=== PATIENT | male | born 1965 | race African-American/Black ===

== ENCOUNTER 2016-08-02 12:55 | Emergency (ER) | payer MEDICAID, OTHER ==
[~2016-08-02] VITALS: Ht 165.1 cm; Wt 65.8 kg
[~2016-08-02 12:55] MED LIST: DICYCLOMINE HCL10 MG PO; FLONASE1 SPRAYS NASAL; IBUPROFEN800 MG ORAL
[2016-08-02 14:07] VITALS: BP 158/89
[2016-08-02] MEDS ORDERED: LOVAZA1 GM ORAL (14:12)
[2016-08-02 14:19] VITALS: BP 158/89
--- NOTE | 2016-08-02 15:27 | Emergency Room Report ---
History of Present Illness General Chief Complaint: Pain Source: Patient Present Illness HPI Patient is a 51-year-old male who presented after having increased generalized body aches for the past 2 days. Patient prior history of chronic pain. The patient stated that he had been having increased joint pain to multiple joints patient had previously been taking multiple different types of pain medications which included tramadol Naprosyn gabapentin among others. Patient had denied any fever. He had not been vomiting or having diarrhea. He denied any focal weakness. Allergies: Coded Allergies: No Known Allergies (Unverified , 08/11/14) Patient History Reviewed Nursing Documentation: PMH: Agreed, PSxH: Agreed Nursing Documentation-PMH Past Medical History: No History, Except For Hx Hypertension: Yes Hx Asthma: Yes Hx Diabetes: Yes Review of Systems All Other Systems: negative except mentioned in HPI Physical Exam Vital Signs Date Time Temp Pulse Resp B/P Pulse Ox O2 Delivery O2 Flow Rate FiO2 08/02/16 13:01 98.2 108 16 83/53 98 Room Air General Appearance: well appearing, no apparent distress, alert, GCS 15 Head: normocephalic, atraumatic ENT: hearing grossly normal, normal voice Neck: full range of motion, supple Respiratory: no respiratory distress, speaking full sentences Musculoskeletal: no calf tenderness Neurologic: normal gait Psychiatric: mood/affect normal Skin: no rash Medical Decision Making Diagnostic Impression: Primary Impression: Generalized pain Additional Impression: Arthritis ER Course Patient presented for generalized joint pain. Differential diagnosis included was not limited to arthritis, gout, viral illness among others. Patient's benign exam and does not appear to require any further imaging or laboratory testing at this time. This patient exacerbation of patient's chronic pain. Patient was given a prescription for a Lovaza he was advised followup with his primary care physician for adjustments of his other pain medications. Last Vital Signs Date Time Temp Pulse Resp B/P Pulse Ox O2 Delivery O2 Flow Rate FiO2 08/02/16 14:19 98.2 87 20 158/89 98 Room Air Status: improved Disposition: HOME, SELF-CARE Condition: Stable Scripts Bethel-3 Acid Ethyl Esters (LOVAZA) 1 Gm Capsule 1 GM ORAL DAILY, #30 CAP 0 Refills Prov: Jd Dominguez 08/02/16 Patient Instructions: Chronic Pain Jd Dominguez Aug 02, 2016 15:27
== END 2016-08-02 14:19 | disposition home or self-care (01) ==
LOC: EMR 13:15
DX: M19.90 Unspecified osteoarthritis, unspecified site (principal); E11.9 Type 2 diabetes mellitus without complications; J45.909 Unspecified asthma, uncomplicated; I10 Essential (primary) hypertension
CPT/HCPCS: 99282

== ENCOUNTER 2016-11-05 16:16 | Emergency (ER) | payer OTHER ==
[~2016-11-05] VITALS: Ht 165.1 cm; Wt 57.6 kg
[~2016-11-05 16:16] MED LIST changes: +LOVAZA1 GM ORAL
[2016-11-05] MEDS ORDERED: TRAMADOL HCL50 MG ORAL (16:33)
[2016-11-05] MEDS ORDERED: METHOCARBAMOL500 MG ORAL (16:33)
[2016-11-05] MEDS ORDERED: VENTOLIN HFA18 GM INH (16:33)
[2016-11-05] MEDS ORDERED: PREDNISONE20 MG ORAL ×2 (16:33→17:55)
[2016-11-05] MEDS ORDERED: PAMELOR25 MG ORAL (16:33)
[2016-11-05] MEDS ORDERED: METFORMIN HCL1000 M1 ORAL (16:33)
[2016-11-05] MEDS ORDERED: GABAPENTIN300 MG ORAL (16:33)
[2016-11-05 16:41] VITALS: BP 147/95
[2016-11-05] MEDS ORDERED: Albuterol ud Inhalation HHN ONE ×2 (16:45→17:15)
[2016-11-05] MEDS ORDERED: Ipratropium 0.02% Inh Soln 2.5ml UD HHN ONE ×2 (16:45→17:15)
[2016-11-05] MEDS ORDERED: PredniSONE 20mg tab ORAL ONE (16:45)
[2016-11-05 17:31] VITALS: BP 137/99
[2016-11-05] MEDS ORDERED: PROAIR HFA8.5 GM INH (17:55)
[2016-11-05 18:06] VITALS: BP 161/97
--- NOTE | 2016-11-05 20:54 | Emergency Room Report ---
History of Present Illness General Chief Complaint: Asthma Present Illness HPI The patient is a 51-year-old male With a history of hypertension, diabetes, and asthma presenting for shortness of breath. The patient was being seen by his neurologist today and was told to come to the emergency department. The patient has used albuterol at home this morning which did not help. The patient denies any other symptoms including chest pain, nausea, vomiting, fever , chills, headache, dizziness, abd pain Allergies: Coded Allergies: No Known Allergies (Unverified , 08/11/14) Patient History Past Medical History: see triage record Pertinent Family History: none Reviewed Nursing Documentation: PMH: Agreed, PSxH: Agreed Nursing Documentation-PMH Hx Hypertension: Yes Hx Asthma: Yes Hx Diabetes: Yes Review of Systems All Other Systems: negative except mentioned in HPI Physical Exam Vital Signs Date Time Temp Pulse Resp B/P Pulse Ox O2 Delivery O2 Flow Rate FiO2 11/05/16 16:24 97.9 114 22 120/85 98 Room Air 11/05/16 16:44 40 Sp02 EP Interpretation: reviewed, normal General Appearance: no apparent distress, alert, GCS 15, non-toxic Head: normocephalic, atraumatic Eyes: bilateral eye PERRL, bilateral eye normal inspection ENT: hearing grossly normal, normal pharynx, no angioedema, normal voice Neck: full range of motion, supple/symm/no masses Respiratory: no retraction, no accessory muscle use, wheezing - diffuse Cardiovascular #1: no JVD, no murmur, normal capillary refill, tachycardia Musculoskeletal: back normal, gait/station normal, normal range of motion, non- tender Neurologic: alert, oriented x3, responsive, motor strength/tone normal, sensory intact, speech normal Psychiatric: judgement/insight normal, memory normal, mood/affect normal, no suicidal/homicidal ideation Skin: normal color, no rash, warm/dry, well hydrated Lymphatic: no adenopathy Medical Decision Making PA Attestation Dr. Patricia is my supervising physician. Patient management was discussed with my supervising physician Diagnostic Impression: Primary Impression: Asthma ER Course The patient is a 51-year-old male With a history of hypertension, diabetes, and asthma presenting for shortness of breath Differential diagnoses considered but not limited to: Asthma exacerbation, bronchitis, pneumonia, anxiety PE: Tachycardia and tachypnea. NAD. Afebrile. HEENT unremarkable. Cardiac: Tachycardia. No MRG Lungs: diffuse wheezing. The patient is given 2 breathing treatments with albuterol and ipratropium. The patient is feeling better. Wheezing has decreased and lung sounds have increased. The patient is given 60 mg of prednisone in the emergency department. The patient will be discharged home with a prescription for albuterol, prednisone, and will followup with PMD. ER precautions are given Chest X-Ray Diagnostic Results EP Interpretation: Yes Findings: no consolidation, no effusion, no pneumothorax, no acute cardiopulmonary disease Number of Views: 1 PA Scribe Text I am acting as scribe for my supervising physician. My supervising physician's interpretation of the chest xrays are there is no consolidation, no effusion, no acute cardiopulmonary disease, no pneumothorax Last Vital Signs Date Time Temp Pulse Resp B/P Pulse Ox O2 Delivery O2 Flow Rate FiO2 11/05/16 18:06 117 19 161/97 100 Room Air 11/05/16 17:27 40 11/05/16 16:24 97.9 Status: improved Disposition: HOME, SELF-CARE Condition: Improved Scripts Prednisone* (PREDNISONE*) 20 Mg Tablet 40 MG ORAL DAILY for 4 Days, TAB Prov: ADAN CHAVARRIA 11/05/16 Albuterol Sulfate* (PROAIR HFA*) 8.5 Gm Hfa.aer.ad 2 PUFFS INH Q6H, #8.5 GM 0 Refills Prov: ADAN CHAVARRIA 11/05/16 Referrals: [facility] (PCP) Patient Instructions: Asthma, Adult Additional Instructions: I discussed my findings with the patient. All questions and concerns have been answered. Treatment and medication compliance have been addressed. I advised the patient that they need to follow up with primary doctor as soon as possible. Return to ED if symptoms worsen, new symptoms arise, or if needed for any reason. Patient verbalized understanding of discharge instructions. ADAN CHAVARRIA Nov 05, 2016 20:54
--- NOTE | 2016-11-06 10:28 | Diagnostic Imaging Report ---
Indication: Cough Technique: XRAY CHEST 1 V Comparison: None Findings: The cardiomediastinal silhouette is within normal limits. There is no focal consolidation, pneumothorax or pleural effusion. Osseous structures demonstrate no acute abnormality. Impression: No acute cardiopulmonary disease.
== END 2016-11-05 18:09 | disposition home or self-care (01) ==
LOC: EMR 16:36
DX: J45.909 Unspecified asthma, uncomplicated (principal); E11.9 Type 2 diabetes mellitus without complications
CPT/HCPCS: 71010; 82962; 94640; 94664; 99284

== ENCOUNTER 2017-01-04 17:25 | Emergency (ER) | payer OTHER ==
[~2017-01-04] VITALS: Ht 162.6 cm; Wt 56.7 kg
[~2017-01-04 17:25] MED LIST changes: +GABAPENTIN300 MG ORAL; +METFORMIN HCL1000 M1 ORAL; +METHOCARBAMOL500 MG ORAL; +PAMELOR25 MG ORAL; +PREDNISONE20 MG ORAL; +PROAIR HFA8.5 GM INH; +TRAMADOL HCL50 MG ORAL; +VENTOLIN HFA18 GM INH
[2017-01-04 17:40] VITALS: BP 149/98
[2017-01-04 18:09] LABS: LYMPHOCYTES % (AUTO) 35.1 % (20.0-45.0); MEAN CORPUSCULAR HEMOGLOBIN 32.7 PG (27.0-31.0); MEAN CORPUSCULAR HGB CONC 35.2 G/DL (32.0-36.0); MEAN CORPUSCULAR VOLUME 93 FL (80-99); MEAN PLATELET VOLUME 6.3 FL (6.5-10.1); MONOCYTES % (AUTO) 1.5 % (1.0-10.0); NEUTROPHILS % (AUTO) 59.5 % (45.0-75.0); PLATELET COUNT 233 K/UL (150-450); RED BLOOD COUNT 5.06 M/UL (4.70-6.10); RED CELL DISTRIBUTION WIDTH 12.7 % (11.6-14.8); WHITE BLOOD COUNT 8.9 K/UL (4.8-10.8)
[2017-01-04 18:27] LABS: TROPONIN I < 0.30 ng/mL (<=0.30)
[2017-01-04 18:30] LABS: ALANINE AMINOTRANSFERASE 18 U/L (3-41); ALBUMIN/GLOBULIN RATIO 1.2 (1.0-2.7); ANION GAP 17 (5-15); ASPARTATE AMINO TRANSFERASE 16 U/L (5-40); CALCIUM 10.1 mg/dL (8.6-10.2); CARBON DIOXIDE 25 mEQ/L (20-30); CHLORIDE 93 mEQ/L (98-107); CREATININE 0.8 mg/dL (0.7-1.2); GLOMERULAR FILTRATION RATE > 60 mL/min (>60); HEMOLYSIS 24; POTASSIUM 4.1 mEQ/L (3.4-4.9); SODIUM 135 mEQ/L (135-145); TOTAL PROTEIN 7.7 g/dL (6.6-8.7)
[2017-01-04 18:41] LABS: CKMB 1.5 ng/mL (< 6.7)
[2017-01-04] MEDS ORDERED: Nitroglycerin Subl 0.4mg tab (Bottle Of 25) SL PRN (18:45)
[2017-01-04 19:29] VITALS: BP 136/88
[2017-01-04] MEDS ORDERED: Morphine Sulfate 4mg/ml Inj IVP ONE (20:00)
[2017-01-04 20:46] VITALS: BP 114/84
--- NOTE | 2017-01-04 21:39 | Emergency Room Report ---
History of Present Illness General Chief Complaint: Pain Source: Patient Present Illness HPI 51-year-old male presents ED complaining of chest pain and body pain times one day. Patient states he has a history of neuropathy but states his pain medications are not helping. Pain is a 10 out of 10, sharp, nonradiating. patient also notes chest pain. Unclear whether it is related or separate. Denies shortness of breath. No other aggravating or relieving factor. denies any other associated symptoms Allergies: Coded Allergies: No Known Allergies (Unverified , 08/11/14) Patient History Past Medical History: HTN, asthma, other - neuropathy Past Surgical History: none Pertinent Family History: none Social History: Denies: alcohol use, drug use, smoking Immunizations: UTD Reviewed Nursing Documentation: PMH: Agreed, PSxH: Agreed Nursing Documentation-PMH Past Medical History: No History, Except For Hx Hypertension: Yes Hx Asthma: Yes Hx Diabetes: Yes - neuropathy Review of Systems All Other Systems: negative except mentioned in HPI Physical Exam Vital Signs Date Time Temp Pulse Resp B/P Pulse Ox O2 Delivery O2 Flow Rate FiO2 01/04/17 17:28 98.4 102 20 133/98 98 Room Air Sp02 EP Interpretation: reviewed, normal General Appearance: no apparent distress, alert, GCS 15, non-toxic Head: normocephalic, atraumatic Eyes: bilateral eye PERRL, bilateral eye normal inspection ENT: hearing grossly normal, normal pharynx, no angioedema, normal voice Neck: full range of motion, supple/symm/no masses Respiratory: lungs clear, normal breath sounds, speaking full sentences, other - reproducible chest wall pain Cardiovascular #1: regular rate, rhythm, no edema Cardiovascular #2: 2+ carotid (R), 2+ carotid (L), 2+ radial (R), 2+ radial (L) , 2+ dorsalis pedis (R), 2+ dorsalis pedis (L) Gastrointestinal: normal bowel sounds, non tender, soft, non-distended, no guarding, no rebound Rectal: deferred Genitourinary: normal inspection, no CVA tenderness Musculoskeletal: back normal, gait/station normal, normal range of motion, non- tender, other - reproducible back pain Neurologic: alert, oriented x3, responsive, motor strength/tone normal, sensory intact, speech normal Psychiatric: judgement/insight normal, memory normal, mood/affect normal, no suicidal/homicidal ideation Reflexes: 3+ bicep (R), 3+ bicep (L), 3+ tricep (R), 3+ tricep (L), 3+ knee (R) , 3+ knee (L) Skin: normal color, no rash, warm/dry, well hydrated Lymphatic: no adenopathy Medical Decision Making Diagnostic Impression: Primary Impression: Substance abuse Additional Impression: Chest pain Qualified Codes: R07.9 - Chest pain, unspecified ER Course Hospital Course 51-year-old male presents ED complaining of chest pain, back pain. h/o neuropathy Differential diagnoses include: [place]/unstable angina, contusion, muscle strain, PTX, rib fracture Clinical course Patient placed on stretcher. on cardiac cath tech. After initial history and physical I ordered labs, EKG, chest x-ray, NTG labs reviewed- no leukocytosis, hb/hct stable, electrolytes ok, trop negative, Utox + mutiple substances EKG- nsr no acute changes interpreted by me Chest x-ray- unrmarkable Patient was given nitroglycerin x3 with some improvement. Given cardiac history and history of substance abuse I believe patient would require admission Patient does not want to be admitted. Patient states he wishes to go home. Understands the risks of leaving. Patient has competency to make his own decisions. Signed AMA form. I. I feel this is a highly complex case requiring extensive working including EKG/Rhythm strip, Xray/CT/US, Blood/urine lab work, repeat exams while in ED, and administration of strong opiates/narcotics for pain control, admission to hospital or close patient follow up. Diagnosis - substance abuse, chest pain patient left AMA Labs Test 01/04/17 17:45 01/04/17 18:15 White Blood Count 8.9 K/UL (4.8-10.8) Red Blood Count 5.06 M/UL (4.70-6.10) Hemoglobin 16.6 G/DL (14.2-18.0) Hematocrit 47.0 % (42.0-52.0) Mean Corpuscular Volume 93 FL (80-99) Mean Corpuscular Hemoglobin 32.7 PG (27.0-31.0) Mean Corpuscular Hemoglobin Concent 35.2 G/DL (32.0-36.0) Red Cell Distribution Width 12.7 % (11.6-14.8) Platelet Count 233 K/UL (150-450) Mean Platelet Volume 6.3 FL (6.5-10.1) Neutrophils (%) (Auto) 59.5 % (45.0-75.0) Lymphocytes (%) (Auto) 35.1 % (20.0-45.0) Monocytes (%) (Auto) 1.5 % (1.0-10.0) Eosinophils (%) (Auto) 2.0 % (0.0-3.0) Basophils (%) (Auto) 2.0 % (0.0-2.0) Sodium Level 135 mEQ/L (135-145) Potassium Level 4.1 mEQ/L (3.4-4.9) Chloride Level 93 mEQ/L (98-107) Carbon Dioxide Level 25 mEQ/L (20-30) Anion Gap 17 (5-15) Blood Urea Nitrogen 10 mg/dL (7-23) Creatinine 0.8 mg/dL (0.7-1.2) Estimat Glomerular Filtration Rate > 60 mL/min (>60) Glucose Level 179 mg/dL (74-106) Calcium Level 10.1 mg/dL (8.6-10.2) Total Bilirubin 0.4 mg/dL (0.0-1.2) Aspartate Amino Transf (AST/SGOT) 16 U/L (5-40) Alanine Aminotransferase (ALT/SGPT) 18 U/L (3-41) Alkaline Phosphatase 113 U/L (40-129) Total Creatine Kinase 65 U/L (38-174) Creatine Kinase MB 1.5 ng/mL (< 6.7) Creatine Kinase MB Relative Index 2.3 Troponin I < 0.30 ng/mL (<=0.30) Total Protein 7.7 g/dL (6.6-8.7) Albumin 4.3 g/dL (3.5-5.2) Globulin 3.4 g/dL Albumin/Globulin Ratio 1.2 (1.0-2.7) Urine Opiates Screen Positive (NEGATIVE) Urine Barbiturates Screen Negative (NEGATIVE) Phencyclidine (PCP) Screen Negative (NEGATIVE) Urine Amphetamines Screen Positive (NEGATIVE) Urine Benzodiazepines Screen Negative (NEGATIVE) Urine Cocaine Screen Negative (NEGATIVE) Urine Marijuana (THC) Screen Positive (NEGATIVE) EKG Diagnostic Results Rate: normal Rhythm: NSR ST Segments: no acute changes ASA given to the pt in ED: No Rhythm Strip Diag. Results EP Interpretation: yes Rhythm: NSR, no PVC's, no ectopy Chest X-Ray Diagnostic Results EP Interpretation: Yes Findings: no consolidation, no effusion, no pneumothorax, no acute cardiopulmonary disease Number of Views: 1 Last Vital Signs Date Time Temp Pulse Resp B/P Pulse Ox O2 Delivery O2 Flow Rate FiO2 01/04/17 20:46 98.2 97 22 114/84 100 Room Air Status: improved Disposition: AGAINST MEDICAL ADVICE Condition: Stable Referrals: [facility] (PCP) LEANDRO TRENT M.D. Jan 04, 2017 21:39
--- NOTE | 2017-01-05 09:31 | Diagnostic Imaging Report ---
Indication: Chest Pain Comparison: None A single view chest radiograph was obtained. Findings: Cardiomediastinal appearance is within normal limits for age. Pulmonary vascularity is appropriate. The diaphragmatic contour is smooth and costophrenic angles are sharp. No pleural effusions are identified. The bones are osteopenic. Impression: No acute findings
--- NOTE | 2017-01-05 17:51 | Cardiology Report ---
APPROVED REPORT EKG Measurement Heart [id number] Normal sinus rhythm Normal ECG
== END 2017-01-04 20:47 | disposition left against medical advice (07) ==
LOC: EMR 18:21
DX: R07.9 Chest pain, unspecified (principal); I10 Essential (primary) hypertension; J45.909 Unspecified asthma, uncomplicated; E11.40 Type 2 diabetes mellitus with diabetic neuropathy, unspecified; F19.10 Other psychoactive substance abuse, uncomplicated
CPT/HCPCS: 36415; 71010; 80053; 80300; 82550; 82553; 84484; 85025; 93005; 96360; 96374; 99284; J2405; J7040

== ENCOUNTER 2017-02-17 20:32 | Emergency (ER) | payer OTHER ==
[~2017-02-17] VITALS: Ht 165.1 cm; Wt 59.0 kg
[2017-02-17] MEDS ORDERED: TRAMADOL HCL50 MG ORAL (21:45)
--- NOTE | 2017-02-17 21:45 | Emergency Room Report ---
History of Present Illness General Chief Complaint: Pain Source: Patient Present Illness HPI This is a 51-year-old male with history of diabetes. 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 Complaining on his body pain. Onset for last few days. Out of his pain medication. No nausea vomiting. Pain is 10 out of 10. No fever or chills but no diarrhea. Denies any other complaint. Allergies: Coded Allergies: No Known Allergies (Unverified , 08/11/14) Patient History Past Medical History: see triage record, old chart reviewed, DM Past Surgical History: other Pertinent Family History: none Social History: Denies: smoking Immunizations: other Reviewed Nursing Documentation: PMH: Agreed, PSxH: Agreed Nursing Documentation-PMH Past Medical History: No History, Except For Hx Hypertension: Yes Hx Asthma: Yes Hx Diabetes: Yes - neuropathy Review of Systems Eye: Denies: blurred vision, eye pain ENT: Denies: ear pain, nose congestion, throat swelling Respiratory: Denies: cough, shortness of breath Cardiovascular: Denies: chest pain, palpitations Gastrointestinal: Denies: abdominal pain, diarrhea, nausea, vomiting Musculoskeletal: Denies: back pain, joint pain Skin: Denies: rash Neurological: Denies: headache, numbness Endocrine: Denies: increased thirst, increased urine Hematologic/Lymphatic: Denies: easy bruising All Other Systems: negative except mentioned in HPI Physical Exam Vital Signs Date Time Temp Pulse Resp B/P Pulse Ox O2 Delivery O2 Flow Rate FiO2 02/17/17 20:43 98.2 87 16 156/97 100 Room Air vitals normal except for hypertension Sp02 EP Interpretation: reviewed, normal General Appearance: well appearing, no apparent distress, alert Head: normocephalic, atraumatic Eyes: bilateral eye EOMI, bilateral eye PERRL ENT: hearing grossly normal, normal pharynx Neck: full range of motion, supple, no meningismus Respiratory: chest non-tender, lungs clear, normal breath sounds Cardiovascular #1: regular rate, rhythm, no murmur Gastrointestinal: normal bowel sounds, non tender, no mass, no organomegaly, no bruit, non-distended Musculoskeletal: back normal, gait/station normal, normal range of motion Psychiatric: mood/affect normal Skin: warm/dry Medical Decision Making Diagnostic Impression: Primary Impression: Generalized pain ER Course Patient presents with exacerbation of chronic pain. No evidence of infection. No evidence of ACS, PE, dissection to name a few. We'll discharge him. Last Vital Signs Date Time Temp Pulse Resp B/P Pulse Ox O2 Delivery O2 Flow Rate FiO2 02/17/17 20:43 98.2 87 16 156/97 100 Room Air Status: unchanged Disposition: HOME, SELF-CARE Condition: Stable Scripts Tramadol Hcl* (ULTRAM*) 50 Mg Tablet 50 MG ORAL Q6H Y for For Pain, #10 TAB 0 Refills Prov: DIEGO TRIPLETT M.D. 02/17/17 Referrals: [facility] (PCP) Patient Instructions: Chronic Pain Additional Instructions: Followup with your Dr. for refill your pain medication. Return if symptom worsen. Abstain from drugs or alcohol. DIEGO TRIPLETT M.D. Feb 17, 2017 21:45
[2017-02-17 22:32] VITALS: BP 156/97
== END 2017-02-17 22:32 | disposition home or self-care (01) ==
LOC: EMR 21:24
DX: R52 Pain, unspecified (principal); G89.29 Other chronic pain; I10 Essential (primary) hypertension; E11.40 Type 2 diabetes mellitus with diabetic neuropathy, unspecified; J45.909 Unspecified asthma, uncomplicated
CPT/HCPCS: 99283

== ENCOUNTER 2017-04-09 12:37 | Emergency (ER) | payer OTHER ==
[~2017-04-09] VITALS: Ht 165.1 cm; Wt 63.5 kg
[2017-04-09 12:51] VITALS: BP 128/83
--- NOTE | 2017-04-09 13:07 | Emergency Room Report ---
History of Present Illness General Chief Complaint: Abdominal Pain Source: Patient Present Illness HPI Patient presents to swelling in his upper abdomen and chest. He's diabetic. He saw his doctor on Tuesday and he was told that his numbers were "off" and he wanted the patient to present to the emergency department. He has chronic pain from peripheral neuropathy. Denies any vomiting. His doctor has given both Toradol and [place]. In addition to that he has either Indocin or ibuprofen to take. Denies any fevers. Is no change in his bowels. He also takes gabapentin and vitamins. He states his sugars have been fairly well controlled. Is not been hospitalized recently but was told by his doctor to go to the hospital to be admitted. The pain is rated 10/10, constant. Not exertional. Not pleuritic. Some radiation from epigastric area into R chest. Pressure and aching - feeling of swelling. The pain and swelling in his chest has been going on for 2 months. Risk factors = smoking, diabetes, high cholesterol, HTN. There are no skin changes. No headache. He states he is not looking for pain medicine. Allergies: Coded Allergies: No Known Allergies (Unverified , 08/11/14) Patient History Past Medical History: see triage record Social History: Reports: smoking, drug use - THC, Denies: alcohol use Social History Narrative drove himself here Reviewed Nursing Documentation: PMH: Agreed, PSxH: Agreed Nursing Documentation-PMH Hx Hypertension: Yes Hx Asthma: Yes Hx Diabetes: Yes - neuropathy Review of Systems All Other Systems: negative except mentioned in HPI Physical Exam Vital Signs Date Time Temp Pulse Resp B/P (MAP) Pulse Ox O2 Delivery O2 Flow Rate FiO2 04/09/17 12:43 98.4 88 15 128/83 97 Room Air Sp02 EP Interpretation: reviewed, normal General Appearance: well appearing, no apparent distress, GCS 15, other - not appear in any distress from level of pain reported Head: normocephalic Eyes: bilateral eye normal inspection, bilateral eye PERRL ENT: moist mucus membranes Neck: supple Respiratory: lungs clear, normal breath sounds, other - gynecomastea Cardiovascular #1: regular rate, rhythm, no edema Cardiovascular #2: 2+ radial (R) Gastrointestinal: normal inspection, normal bowel sounds, non tender, no mass, non-distended Musculoskeletal: back normal, gait/station normal, normal range of motion Neurologic: alert, oriented x3, sensory deficit - stated peripheral neuropathy , grossly normal Psychiatric: mood/affect normal Skin: normal inspection, warm/dry Procedures Critical Care Time Critical Care Time Total Critical Care Time: 30 min bedside evaluation and treatment excludes procedures (EKG). Reason for critical care: possible STEMI Possible complications: hypotension, hypertension, OR, shock, arrhythmias, metabolic acidosis, end organ damage, respiratory failure. Interventions: aspirin, NTG, metoprolol, heparin, morphine, repeated evaluations Course: Patient with atypical chest pain with risk factors. Initial evaluation negative. Repeat evaluation led to EKG with STEMI, though changes not persistent. Treated with aspirin, nitrates, metoprolol and heparin. Still with pain (on re-evaluation), morphine given. Discussion with MARKELL and then Steve and arrangement for transfer higher level of care. Consultations: nursing staff, MARKELL attending/smoking pipe mounter, Steve Performed by: Dr. Quesada Tolerated well condition = serious Medical Decision Making Diagnostic Impression: Primary Impression: ST elevation possibly spasm Additional Impression: Diabetes Qualified Codes: E10.8 - Type 1 diabetes mellitus with unspecified complications ER Course The patient presents with right-sided chest pain. He complains about swelling. He states that his doctor wanted him to be admitted to the hospital because of specific numbers that were "off" with labs. Differential includes acute myocardial infarction, acute coronary syndrome, gynecomastia, costochondritis, bronchitis, pneumonia amongst others. The patient has risk factors of being diabetic and high lipids. His history is atypical. Treated with Toradol and Pepcid. Initially EKG is normal sinus rhythm and normal. Chest x-ray is unremarkable. Labs including troponin are negative. In discussion with the patient about his treatments and noted that ST segments were different on the monitor. Repeat EKG was performed which suggests the patient is having a STEMI. [facility] was immediately contacted. An EKG was done subsequent to that but normalized again. This suggested the patient might be having coronary spasm or a coronary lesion near occlusion. The patient was given aspirin and nitroglycerin, metoprolol and heparin. He states the pain is still significant. Concern over "silent" ischemic event. Discussed with Dr. Irby, [facility] attending - accepts as chest pain transfer. [facility] states not accepted as need to speak with smoking pipe mounter @ 16:25. [address] Herbert, smoking pipe mounter "I'll get back with you." Discussed with Steve - accepted by Dr. Castillo. Arranging for transport. Second troponin drawn. Second troponin negative. Called to cancel [facility]. Patient feels different than when EKG was done. But c/o 04/10 pain. Morphine ordered. Patient improved but with significant cardiac event, though not STEMI. Laboratory Tests Test 04/09/17 13:20 04/09/17 13:35 Urine Color Pale yellow Urine Appearance Clear Urine pH 7 (4.5-8.0) Urine Specific [place] 1.010 (1.005-1.035) Urine Protein Negative (NEGATIVE) Urine Glucose (UA) 4+ (NEGATIVE) H Urine Ketones Negative (NEGATIVE) Urine Occult Blood Negative (NEGATIVE) Urine Nitrite Negative (NEGATIVE) Urine Bilirubin Negative (NEGATIVE) Urine Urobilinogen Normal MG/DL (0.0-1.0) Urine Leukocyte Esterase Negative (NEGATIVE) Urine Opiates Screen Negative (NEGATIVE) Urine Barbiturates Screen Negative (NEGATIVE) Phencyclidine (PCP) Screen Negative (NEGATIVE) Urine Amphetamines Screen Negative (NEGATIVE) Urine Benzodiazepines Screen Negative (NEGATIVE) Urine Cocaine Screen Negative (NEGATIVE) Urine Marijuana (THC) Screen Positive (NEGATIVE) H White Blood Count 6.4 K/UL (4.8-10.8) Red Blood Count 5.16 M/UL (4.70-6.10) Hemoglobin 16.2 G/DL (14.2-18.0) Hematocrit 47.6 % (42.0-52.0) Mean Corpuscular Volume 92 FL (80-99) Mean Corpuscular Hemoglobin 31.3 PG (27.0-31.0) H Mean Corpuscular Hemoglobin Concent 34.0 G/DL (32.0-36.0) Red Cell Distribution Width 13.3 % (11.6-14.8) Platelet Count 347 K/UL (150-450) Mean Platelet Volume 6.1 FL (6.5-10.1) L Neutrophils (%) (Auto) 51.8 % (45.0-75.0) Lymphocytes (%) (Auto) 38.2 % (20.0-45.0) Monocytes (%) (Auto) 1.8 % (1.0-10.0) Eosinophils (%) (Auto) 5.7 % (0.0-3.0) H Basophils (%) (Auto) 2.5 % (0.0-2.0) H Erythrocyte Sedimentation Rate 26 MM/HR (0-20) H Prothrombin Time 10.2 SEC (9.30-11.50) Prothrombin Time INR 1.0 (0.9-1.1) PTT 32 SEC (23-33) Sodium Level 137 mEQ/L (135-145) Potassium Level 3.9 mEQ/L (3.4-4.9) Chloride Level 96 mEQ/L (98-107) L Carbon Dioxide Level 27 mEQ/L (20-30) Anion Gap 14 (5-15) Blood Urea Nitrogen 16 mg/dL (7-23) Creatinine 0.9 mg/dL (0.7-1.2) Estimate Glomerular Filtration Rate > 60 mL/min (>60) Glucose Level 191 mg/dL (74-106) H Uric Acid 5.8 mg/dL (3.0-7.5) Calcium Level 9.8 mg/dL (8.6-10.2) Total Bilirubin 0.3 mg/dL (0.0-1.2) Aspartate Amino Transferase (AST) 17 U/L (5-40) Alanine Aminotransferase (ALT) 12 U/L (3-41) Alkaline Phosphatase 93 U/L (40-129) Total Creatine Kinase 198 U/L (38-174) H Troponin I < 0.30 ng/mL (<=0.30) Pro-B-Type Natriuretic Peptide 13 pg/mL (0-125) Total Protein 7.2 g/dL (6.6-8.7) Albumin 4.1 g/dL (3.5-5.2) Globulin 3.1 g/dL Albumin/Globulin Ratio 1.3 (1.0-2.7) Lipase 13 U/L (< 60) EKG Diagnostic Results Rate: normal Rhythm: NSR ST Segments: no acute changes Other Impression EKG #2 (no clinical change except ST segments on monitor). NSR, ST elevation with ST inversions inferiorly. EKG #3 normalization. NSR ASA given to the pt in ED: Yes Rhythm Strip Diag. Results EP Interpretation: yes Rhythm: NSR, no PVC's, no ectopy Chest X-Ray Diagnostic Results Chest X-Ray Diagnostic Results : Chest X-Ray Ordered: Yes # of Views/Limited/Complete: 1 View Indication: Chest Pain EP Interpretation: Yes Interpretation: no consolidation, no effusion, no pneumothorax, no acute cardiopulmonary disease Impression: No acute disease Electronically Signed by: Electronically signed by Jair Quesada MD Last Vital Signs Date Time Temp Pulse Resp B/P (MAP) Pulse Ox O2 Delivery O2 Flow Rate FiO2 04/09/17 17:37 88 18 128/87 99 Room Air 04/09/17 17:20 98.6 Status: improved Disposition: XFER SHT-TRM HOSP Condition: Serious Jair Quesada M.D. Apr 09, 2017 13:07
[2017-04-09] MEDS ORDERED: DiphenhydrAMINE 50mg/ml Inj IVP ONE (13:15)
[2017-04-09] MEDS ORDERED: Ketorolac 30mg Inj IV ONE (13:15)
[2017-04-09] MEDS ORDERED: Famotidine 20 MG/ 2ML VIAL IVP ONE (13:15)
[2017-04-09 13:31] LABS: APPEARANCE,URINE CLEAR; KETONES,URINE NEGATIVE (NEGATIVE); LEUKOCYTE ESTERASE ,URINE NEGATIVE (NEGATIVE); NITRITE,URINE NEGATIVE (NEGATIVE); PH,URINE 7 (4.5-8.0); PROTEIN,URINE NEGATIVE (NEGATIVE); UROBILINOGEN,URINE NORMAL MG/DL (0.0-1.0)
[2017-04-09 14:01] LABS: BASOPHILS % (AUTO) 2.5 % (0.0-2.0); EOSINOPHILS % (AUTO) 5.7 % (0.0-3.0); LYMPHOCYTES % (AUTO) 38.2 % (20.0-45.0); MEAN CORPUSCULAR HEMOGLOBIN 31.3 PG (27.0-31.0); MEAN CORPUSCULAR VOLUME 92 FL (80-99); MEAN PLATELET VOLUME 6.1 FL (6.5-10.1); MONOCYTES % (AUTO) 1.8 % (1.0-10.0); NEUTROPHILS % (AUTO) 51.8 % (45.0-75.0); PLATELET COUNT 347 K/UL (150-450); RED BLOOD COUNT 5.16 M/UL (4.70-6.10); RED CELL DISTRIBUTION WIDTH 13.3 % (11.6-14.8); WHITE BLOOD COUNT 6.4 K/UL (4.8-10.8)
[2017-04-09 14:16] LABS: PROTHROMBIN TIME 10.2 SEC (9.30-11.50)
[2017-04-09 14:24] LABS: TROPONIN I < 0.30 ng/mL (<=0.30)
[2017-04-09 14:27] LABS: ALANINE AMINOTRANSFERASE 12 U/L (3-41); ALBUMIN/GLOBULIN RATIO 1.3 (1.0-2.7); ANION GAP 14 (5-15); ASPARTATE AMINO TRANSFERASE 17 U/L (5-40); CALCIUM 9.8 mg/dL (8.6-10.2); CARBON DIOXIDE 27 mEQ/L (20-30); CHLORIDE 96 mEQ/L (98-107); CREATININE 0.9 mg/dL (0.7-1.2); GLOMERULAR FILTRATION RATE > 60 mL/min (>60); HEMOLYSIS 13; LIPASE 13 U/L (< 60); POTASSIUM 3.9 mEQ/L (3.4-4.9); SODIUM 137 mEQ/L (135-145); TOTAL PROTEIN 7.2 g/dL (6.6-8.7); URIC ACID 5.8 mg/dL (3.0-7.5)
[2017-04-09 15:03] VITALS: BP 149/85
[2017-04-09 15:15] LABS: ERYTHROCYTE SEDIMENTATION RATE 26 MM/HR (0-20)
[2017-04-09 15:45] VITALS: BP 140/80
[2017-04-09] MEDS ORDERED: Heparin 5000 units/ml inj IV ONE (15:45)
[2017-04-09] MEDS ORDERED: Nitroglycerin Subl 0.4mg tab (Bottle Of 25) SL PRN (15:45)
[2017-04-09] MEDS ORDERED: Nitroglycerin 2% oint pkt TOPIC ONE (15:45)
[2017-04-09] MEDS: Metoprolol 5mg/5ml Inj IVP SCH ×2 (16:00→16:10)
[2017-04-09] MEDS ORDERED: Morphine Sulfate 4mg/ml Inj IVP ONE (17:00)
[2017-04-09 17:08] LABS: TROPONIN I < 0.30 ng/mL (<=0.30)
[2017-04-09 17:37] VITALS: BP 128/87
--- NOTE | 2017-04-10 09:48 | Diagnostic Imaging Report ---
Indication: S. pain Technique: XRAY CHEST 1 V. Comparison: 01/04/2017 Findings: The cardiomediastinal silhouette is stable. There are no acute infiltrates. No evidence of pleural fluid. Impression: No acute abnormality. No change from previous study. .
--- NOTE | 2017-04-11 18:37 | Cardiology Report ---
APPROVED REPORT EKG Measurement Heart [id number] Normal sinus rhythm Normal ECG
== END 2017-04-09 17:42 | disposition short-term general hospital (02) ==
LOC: EMR 13:25
DX: I21.3 ST elevation (STEMI) myocardial infarction of unspecified site (principal); E11.40 Type 2 diabetes mellitus with diabetic neuropathy, unspecified; I10 Essential (primary) hypertension; J45.909 Unspecified asthma, uncomplicated
CPT/HCPCS: 36415; 71010; 80053; 80300; 81003; 82550; 83690; 83880; 84484; 84550; 85025; 85610; 85651; 85730; 93005; 96374; 96375; 99291; J1200; J1644; J1885; J2270; S0028

== ENCOUNTER 2017-07-01 10:34 | Emergency (ER) | payer OTHER ==
[~2017-07-01] VITALS: Ht 165.1 cm; Wt 63.5 kg
[2017-07-01 10:48] VITALS: BP 175/98
[2017-07-01] MEDS: Morphine Sulfate 4mg/ml Inj IVP ONE (10:56)
[2017-07-01] MEDS: Sodium Chloride 500ML 500 ML IV ONE (11:01)
[2017-07-01 11:07] LABS: BASOPHILS % (AUTO) 2.1 % (0.0-2.0); EOSINOPHILS % (AUTO) 0.8 % (0.0-3.0); LYMPHOCYTES % (AUTO) 21.8 % (20.0-45.0); MEAN CORPUSCULAR HGB CONC 32.8 G/DL (32.0-36.0); MEAN CORPUSCULAR VOLUME 91 FL (80-99); MONOCYTES % (AUTO) 3.4 % (1.0-10.0); PLATELET COUNT 329 K/UL (150-450); RED BLOOD COUNT 5.35 M/UL (4.70-6.10); RED CELL DISTRIBUTION WIDTH 13.4 % (11.6-14.8); WHITE BLOOD COUNT 6.7 K/UL (4.8-10.8)
--- NOTE | 2017-07-01 11:08 | Emergency Room Report ---
History of Present Illness General Chief Complaint: Nausea Source: Patient Present Illness HPI Patient present with complaints of increased nausea Patient reports vomiting and diarrhea started last night Denies any chest pain or shortness of breath He reports that he has neuropathy and feels that this is exacerbating his symptoms Denies any recent travel denies any fall or trauma Pain is essentially fairly diffuse Denies any focal pain Allergies: Coded Allergies: No Known Allergies (Unverified , 08/11/14) Patient History Past Medical History: see triage record Pertinent Family History: none Reviewed Nursing Documentation: PMH: Agreed, PSxH: Agreed Nursing Documentation-PMH Past Medical History: No History, Except For Hx Hypertension: Yes Hx Asthma: Yes Hx Diabetes: Yes - neuropathy Review of Systems All Other Systems: negative except mentioned in HPI Physical Exam Vital Signs Date Time Temp Pulse Resp B/P (MAP) Pulse Ox O2 Delivery O2 Flow Rate FiO2 07/01/17 10:38 97.0 65 23 161/99 99 Room Air Sp02 EP Interpretation: reviewed, normal General Appearance: mild distress - Patient somewhat histrionic Head: normocephalic, atraumatic Eyes: bilateral eye PERRL, bilateral eye EOMI ENT: hearing grossly normal, normal pharynx, TMs + canals normal, uvula midline Neck: full range of motion, supple, no meningismus, no bony tend Respiratory: lungs clear, normal breath sounds, no rhonchi, no respiratory distress, no retraction, no accessory muscle use Cardiovascular #1: normal peripheral pulses, regular rate, rhythm, no edema, no gallop, no JVD, no murmur Gastrointestinal: normal bowel sounds, non tender, soft, no mass, no organomegaly, non-distended, no guarding, no hernia, no pulsatile mass, no rebound Genitourinary: no CVA tenderness Musculoskeletal: normal inspection Neurologic: oriented x3, responsive, financial coordinator III-XII nml as tested, motor strength/ tone normal, sensory intact Psychiatric: anxious Skin: normal color, no rash, warm/dry, palpation normal Lymphatic: normal inspection, no adenopathy Medical Decision Making Diagnostic Impression: Primary Impression: Abdominal cramping Additional Impressions: Nausea and vomiting in adult patient Diarrhea ER Course With the history exam and presentation, multiple differentials considered, including but not limited to appendicitis, gastritis, cholecystitis, diverticulitis Patient has had previous cardiac pathology in our ER there for EKG was also obtained which does not show any acute disease Patient has done better throughout his stay blood work or at baseline levels imaging study has not been obtained given the patient's appropriate resolution And at this time patient stable for close outpatient followup Please note that the patient does have multiple medications showing through CURES and secondary to safe pain medicine prescribing campaign in [place] patient is recommended to followup with his primary physician Labs Test 07/01/17 10:55 White Blood Count 6.7 K/UL (4.8-10.8) Red Blood Count 5.35 M/UL (4.70-6.10) Hemoglobin 16.0 G/DL (14.2-18.0) Hematocrit 48.9 % (42.0-52.0) Mean Corpuscular Volume 91 FL (80-99) Mean Corpuscular Hemoglobin 30.0 PG (27.0-31.0) Mean Corpuscular Hemoglobin Concent 32.8 G/DL (32.0-36.0) Red Cell Distribution Width 13.4 % (11.6-14.8) Platelet Count 329 K/UL (150-450) Mean Platelet Volume 6.0 FL (6.5-10.1) Neutrophils (%) (Auto) 72.0 % (45.0-75.0) Lymphocytes (%) (Auto) 21.8 % (20.0-45.0) Monocytes (%) (Auto) 3.4 % (1.0-10.0) Eosinophils (%) (Auto) 0.8 % (0.0-3.0) Basophils (%) (Auto) 2.1 % (0.0-2.0) Sodium Level 141 MMOL/L (136-145) Potassium Level 3.7 MMOL/L (3.5-5.1) Chloride Level 104 MMOL/L (98-107) Carbon Dioxide Level 24 MMOL/L (21-32) Anion Gap 13 mmol/L (5-15) Blood Urea Nitrogen 16 mg/dL (7-18) Creatinine 0.9 MG/DL (0.55-1.30) Estimat Glomerular Filtration Rate > 60 mL/min (>60) Glucose Level 189 MG/DL (74-106) Calcium Level 9.4 MG/DL (8.5-10.1) Total Bilirubin 0.3 MG/DL (0.2-1.0) Aspartate Amino Transf (AST/SGOT) 16 U/L (15-37) Alanine Aminotransferase (ALT/SGPT) 31 U/L (12-78) Alkaline Phosphatase 124 U/L (46-116) Total Creatine Kinase 261 U/L (26-308) Creatine Kinase MB 3.8 NG/ML (0.0-3.6) Creatine Kinase MB Relative Index 1.4 Troponin I 0.032 ng/mL (0.000-0.056) Total Protein 8.0 G/DL (6.4-8.2) Albumin 4.0 G/DL (3.4-5.0) Globulin 4.0 g/dL Albumin/Globulin Ratio 1.0 (1.0-2.7) Lipase 76 U/L (73-393) Rhythm Strip Diag. Results EP Interpretation: yes Rate: 77 Rhythm: NSR, no PVC's, no ectopy Last Vital Signs Date Time Temp Pulse Resp B/P (MAP) Pulse Ox O2 Delivery O2 Flow Rate FiO2 07/01/17 10:48 97.5 71 22 175/98 100 Room Air Status: improved Disposition: HOME, SELF-CARE Condition: Improved Scripts Famotidine (PEPCID) 40 Mg Tablet 40 MG PO DAILY, #7 TAB 0 Refills Prov: DANDRE ANTOINE D.O. 07/01/17 Metoclopramide Hcl* (REGLAN*) 5 Mg Tablet 5 MG ORAL EVERY 8 HOURS, #10 TAB Prov: DANDRE ANTOINE D.O. 07/01/17 Referrals: [facility],REFERR[facility] (PCP) Additional Instructions: Patient is provided with the discharge instructions notified to follow up with primary doctor in the next 2-3 days otherwise return to the er with any worsening symptoms. Please note that this report is being documented using Sentient technology. This can lead to erroneous entry secondary to incorrect interpretation by the dictating instrument. DANDRE ANTOINE D.O. Jul 01, 2017 11:08
[2017-07-01 11:17] LABS: ANION GAP 13 mmol/L (5-15); CALCIUM 9.4 MG/DL (8.5-10.1); CARBON DIOXIDE 24 MMOL/L (21-32); CHLORIDE 104 MMOL/L (98-107); CREATININE 0.9 MG/DL (0.55-1.30); GLOMERULAR FILTRATION RATE > 60 mL/min (>60); POTASSIUM 3.7 MMOL/L (3.5-5.1); SODIUM 141 MMOL/L (136-145)
[2017-07-01] MEDS: LORazepam Inj 2mg/ml 1ml IV ONE (11:22)
[2017-07-01] MEDS: Metoclopramide 10mg/2ml Inj IVP ONE (11:22)
--- NOTE | 2017-07-01 11:28 | Diagnostic Imaging Report ---
Indication: Chest pain Technique: One view of the chest Comparison: 04/09/2017 Findings: Lungs and pleural spaces are clear. Heart size is normal. No significant change Impression: No acute process
[2017-07-01 11:34] LABS: ALANINE AMINOTRANSFERASE 31 U/L (12-78); ASPARTATE AMINO TRANSFERASE 16 U/L (15-37); CKMB 3.8 NG/ML (0.0-3.6); LIPASE 76 U/L (73-393)
[2017-07-01 12:41] VITALS: BP 165/90
[2017-07-01] MEDS ORDERED: PEPCID40 MG PO (12:52)
[2017-07-01] MEDS ORDERED: REGLAN5 MG ORAL (12:52)
[2017-07-01 13:09] VITALS: BP 152/88
--- NOTE | 2017-07-02 18:21 | Cardiology Report ---
APPROVED REPORT EKG Measurement Heart [id number] Sinus rhythm with marked sinus arrhythmia with occasional premature ventricular complexes Otherwise normal ECG
== END 2017-07-01 13:14 | disposition home or self-care (01) ==
LOC: EMR 11:04
DX: R10.9 Unspecified abdominal pain (principal); R11.2 Nausea with vomiting, unspecified; R19.7 Diarrhea, unspecified; I10 Essential (primary) hypertension; J45.909 Unspecified asthma, uncomplicated; E11.40 Type 2 diabetes mellitus with diabetic neuropathy, unspecified
CPT/HCPCS: 36415; 71010; 80053; 82550; 82553; 83690; 84484; 85025; 93005; 96374; 96375; 99284; J2270; J2405; J2765; J7040

== ENCOUNTER 2017-07-03 18:35 | Inpatient (IN) | payer OTHER ==
[~2017-07-03] VITALS: Ht 165.1 cm; Wt 63.5 kg
[~2017-07-03 18:35] MED LIST changes: +PEPCID40 MG PO; +REGLAN5 MG ORAL
[2017-07-03 18:50] VITALS: BP 155/84
[2017-07-03] MEDS ORDERED: Pantoprazole Inj IVP ONE (19:00)
--- NOTE | 2017-07-03 19:08 | Emergency Room Report ---
History of Present Illness General Chief Complaint: Vomiting Source: Patient Present Illness HPI 52-year-old male, history of hypertension and diabetes, not on aspirin or any blood thinners, p/w abdominal pain nausea vomiting for 3 days. Today vomiting blood. Pain is all from her abdomen but especially in the epigastric area that occurred after vomiting, intermittent, burning, 5/10 Pt reports n/v, more than 5 episodes of vomiting per day, today states that it was dark red, Denies any diarrhea but states that he had 2 episodes of black stool today Denies fever, chills. States that he had a colonoscopy performed within the last 2-3 months, no abnormalities, has never had an endoscopy. Denies any chronic use of any aspirin or NSAIDs, states that he was never a chronic alcoholic He has never vomited blood or had melena in the past Allergies: Coded Allergies: No Known Allergies (Unverified , 08/11/14) Patient History Past Medical History: see triage record Past Surgical History: none Pertinent Family History: none Reviewed Nursing Documentation: PMH: Agreed, PSxH: Agreed Nursing Documentation-PMH Hx Hypertension: Yes Hx Asthma: Yes Hx Diabetes: Yes Review of Systems All Other Systems: negative except mentioned in HPI Physical Exam Vital Signs Date Time Temp Pulse Resp B/P (MAP) Pulse Ox O2 Delivery O2 Flow Rate FiO2 07/03/17 18:39 98.1 111 24 88/58 100 Room Air Sp02 EP Interpretation: reviewed, normal General Appearance: alert, GCS 15, non-toxic, moderate distress Head: normocephalic, atraumatic Eyes: bilateral eye normal inspection, bilateral eye PERRL, bilateral eye EOMI ENT: normal ENT inspection, normal pharynx, normal voice, moist mucus membranes Neck: normal inspection, full range of motion, supple Respiratory: normal inspection, lungs clear, normal breath sounds, no respiratory distress, no retraction, no wheezing, speaking full sentences, chest symmetrical Cardiovascular #1: normal inspection, regular rate, rhythm, no edema, normal capillary refill Cardiovascular #2: 2+ radial (R), 2+ radial (L) Gastrointestinal: non-distended, no guarding, other - +epigastric tenderness, no guarding, +actively vomiting coffee ground emesis Musculoskeletal: normal inspection, back normal, normal range of motion, non- tender Neurologic: normal inspection, alert, oriented x3, responsive, motor strength/ tone normal, sensory intact, normal gait, speech normal Psychiatric: normal inspection, judgement/insight normal, memory normal Skin: normal inspection, normal color, no rash, warm/dry, well hydrated, normal turgor Procedures Critical Care Time Critical Care Time 40 minutes of CC time 52-year-old male with upper GI bleed VS: Normal PLAN: IV access, labs and Zofran, fluids, consider blood transfusion, GI consult Anticipate admission to ICU CC time also includes review of labs, review of EMR, discussion with family and paperwork from SNF, d/w hospitalist CC could include dosing of pressors, additional Abx CC time does not include procedures Medical Decision Making Diagnostic Impression: Primary Impression: Upper GI bleed Additional Impressions: Intractable nausea and vomiting Hypokalemia Dehydration ER Course 52-year-old male with nausea vomiting, hematemesis Differential Diagnosis: Upper GI bleed: Gastritis versus peptic ulcer disease versus AV malformation He does not give any history of cirrhosis, or alcohol use, unlikely to be esophageal varices but will keep in differential cholecystitis, appendicitis, diverticulitis, SBO, mesenteric ischemia, cardiac, UTI/pyelo Plan: Basic labs, ua, ekg Zofran, blood transfusion, Protonix ER course: Patient has had a stable heart rate, not tachycardic, around 85 Never hypotensive Patient initially vomited about 3-4 times coffee-ground emesis in the ER, Zofran given x2, now well controlled and there has been no further episodes of vomiting H&H noted to be high, likely hemoconcentration from dehydration Blood was typed and crossed but will hold transfusion for now as patient is not hypotensive Protonix given, Pepcid given, and 1 L IV fluids given Also noted to be hypokalemic, supplemented Disposition: Patient will be admitted to ICU Discussed with hospitalist Dr Gentile Please note that this Emergency Department Report was dictated using pMDsoftemail marketing processor technology software, occasionally this can lead to erroneous entry secondary to interpretation by the dictation equipment EKG Diagnostic Results EP Interpretation: Yes Rate: normal Rhythm: NSR ST Segments: No acute changes , sinus arrhythmia ASA given to patient: No Rhythm Strip EP Interpretation: Yes Rate: 89 Rhythm: NSR, no PVCs, no ectopy Chest X-ray CXR: Ordered: Yes 1 view Indication: Chest pain EP interpretation: Yes Interpretation: No consolidation, no effusion, no PTX, no acute cardiopulmonary disease, no free air under diaphragm Impression: No acute disease Electronically signed by Garry Pepe MD Laboratory Tests Test 07/03/17 19:00 07/03/17 19:22 White Blood Count 6.9 K/UL (4.8-10.8) Red Blood Count 6.28 M/UL (4.70-6.10) H Hemoglobin 18.5 G/DL (14.2-18.0) *H Hematocrit 56.5 % (42.0-52.0) H Mean Corpuscular Volume 90 FL (80-99) Mean Corpuscular Hemoglobin 29.5 PG (27.0-31.0) Mean Corpuscular Hemoglobin Concent 32.8 G/DL (32.0-36.0) Red Cell Distribution Width 13.1 % (11.6-14.8) Platelet Count 376 K/UL (150-450) Mean Platelet Volume 6.2 FL (6.5-10.1) L Neutrophils (%) (Auto) 75.4 % (45.0-75.0) H Lymphocytes (%) (Auto) 19.9 % (20.0-45.0) L Monocytes (%) (Auto) 2.9 % (1.0-10.0) Eosinophils (%) (Auto) 0.2 % (0.0-3.0) Basophils (%) (Auto) 1.5 % (0.0-2.0) Prothrombin Time 10.9 SEC (9.30-11.50) Prothrombin Time INR 1.0 (0.9-1.1) PTT 33 SEC (23-33) Sodium Level 136 MMOL/L (136-145) Potassium Level 2.9 MMOL/L (3.5-5.1) L Chloride Level 97 MMOL/L (98-107) L Carbon Dioxide Level 26 MMOL/L (21-32) Anion Gap 13 mmol/L (5-15) Blood Urea Nitrogen 20 mg/dL (7-18) H Creatinine 1.1 MG/DL (0.55-1.30) Estimate Glomerular Filtration Rate > 60 mL/min (>60) Glucose Level 122 MG/DL (74-106) H Lactic Acid Level 2.40 mmol/L (0.66-2.22) H Calcium Level 9.9 MG/DL (8.5-10.1) Total Bilirubin 0.7 MG/DL (0.2-1.0) Aspartate Amino Transferase (AST) 29 U/L (15-37) Alanine Aminotransferase (ALT) 36 U/L (12-78) Alkaline Phosphatase 126 U/L (46-116) H Troponin I 0.078 ng/mL (0.000-0.056) Pro-B-Type Natriuretic Peptide 273 pg/mL (0-125) H Total Protein 8.7 G/DL (6.4-8.2) H Albumin 4.3 G/DL (3.4-5.0) Globulin 4.4 g/dL Albumin/Globulin Ratio 1.0 (1.0-2.7) Lipase 64 U/L (73-393) L Urine Color Pale yellow Urine Appearance Clear Urine pH 5 (4.5-8.0) Urine Specific [place] 1.010 (1.005-1.035) Urine Protein Negative (NEGATIVE) Urine Glucose (UA) 4+ (NEGATIVE) H Urine Ketones 4+ (NEGATIVE) H Urine Occult Blood 1+ (NEGATIVE) H Urine Nitrite Negative (NEGATIVE) Urine Bilirubin Negative (NEGATIVE) Urine Urobilinogen Normal MG/DL (0.0-1.0) Urine Leukocyte Esterase Negative (NEGATIVE) Urine RBC 0-2 /HPF (0 - 0) H Urine WBC 0-2 /HPF (0 - 0) Urine Squamous Epithelial Cells None /LPF (NONE/OCC) Urine Bacteria Occasional /HPF (NONE) Last Vital Signs Date Time Temp Pulse Resp B/P (MAP) Pulse Ox O2 Delivery O2 Flow Rate FiO2 07/03/17 18:39 98.1 111 24 88/58 100 Room Air Disposition: ADMITTED INPATIENT Condition: Garry Gordon M.D. Jul 03, 2017 19:08
[2017-07-03 19:18] LABS: BASOPHILS % (AUTO) 1.5 % (0.0-2.0); EOSINOPHILS % (AUTO) 0.2 % (0.0-3.0); LYMPHOCYTES % (AUTO) 19.9 % (20.0-45.0); MEAN CORPUSCULAR HEMOGLOBIN 29.5 PG (27.0-31.0); MEAN CORPUSCULAR HGB CONC 32.8 G/DL (32.0-36.0); MEAN CORPUSCULAR VOLUME 90 FL (80-99); MEAN PLATELET VOLUME 6.2 FL (6.5-10.1); MONOCYTES % (AUTO) 2.9 % (1.0-10.0); NEUTROPHILS % (AUTO) 75.4 % (45.0-75.0); PLATELET COUNT 376 K/UL (150-450); RED BLOOD COUNT 6.28 M/UL (4.70-6.10); RED CELL DISTRIBUTION WIDTH 13.1 % (11.6-14.8); WHITE BLOOD COUNT 6.9 K/UL (4.8-10.8)
[2017-07-03 19:28] LABS: PROTHROMBIN TIME 10.9 SEC (9.30-11.50)
[2017-07-03 19:31] LABS: ANION GAP 13 mmol/L (5-15); CALCIUM 9.9 MG/DL (8.5-10.1); CARBON DIOXIDE 26 MMOL/L (21-32); CHLORIDE 97 MMOL/L (98-107); CREATININE 1.1 MG/DL (0.55-1.30); GLOMERULAR FILTRATION RATE > 60 mL/min (>60); POTASSIUM 2.9 MMOL/L (3.5-5.1); SODIUM 136 MMOL/L (136-145)
[2017-07-03 19:41] LABS: ALANINE AMINOTRANSFERASE 36 U/L (12-78); ASPARTATE AMINO TRANSFERASE 29 U/L (15-37); LIPASE 64 U/L (73-393); TOTAL PROTEIN 8.7 G/DL (6.4-8.2)
[2017-07-03 19:52] LABS: REFLEX LACTIC ACID YES OR NO YES
[2017-07-03 20:03] LABS: APPEARANCE,URINE CLEAR; KETONES,URINE 4+ (NEGATIVE); LEUKOCYTE ESTERASE ,URINE NEGATIVE (NEGATIVE); NITRITE,URINE NEGATIVE (NEGATIVE); PH,URINE 5 (4.5-8.0); PROTEIN,URINE NEGATIVE (NEGATIVE); UROBILINOGEN,URINE NORMAL MG/DL (0.0-1.0)
[2017-07-03 20:13] LABS: BACTERIA,URINE OCCASIONAL /HPF; RBC,URINE 0-2 /HPF (0 - 0); WBC,URINE 0-2 /HPF (0 - 0)
[2017-07-03] MEDS ORDERED: Morphine Sulfate 4mg/ml Inj IVP ONE (20:45)
[2017-07-03 22:25] VITALS: BP 179/88
[2017-07-03 22:28] LABS: BASOPHILS % (AUTO) 2.3 % (0.0-2.0); EOSINOPHILS % (AUTO) 0.2 % (0.0-3.0); LYMPHOCYTES % (AUTO) 16.7 % (20.0-45.0); MEAN CORPUSCULAR HGB CONC 32.9 G/DL (32.0-36.0); MEAN CORPUSCULAR VOLUME 91 FL (80-99); MEAN PLATELET VOLUME 6.1 FL (6.5-10.1); MONOCYTES % (AUTO) 4.1 % (1.0-10.0); NEUTROPHILS % (AUTO) 76.7 % (45.0-75.0); PLATELET COUNT 329 K/UL (150-450); RED BLOOD COUNT 5.46 M/UL (4.70-6.10); RED CELL DISTRIBUTION WIDTH 13.2 % (11.6-14.8); WHITE BLOOD COUNT 7.8 K/UL (4.8-10.8)
[2017-07-03] MEDS ORDERED: Metoclopramide 10mg/2ml Inj IVP ONE (23:00)
[2017-07-04] VITALS (7 sets, daily range): BP systolic 120–153; BP diastolic 77–100
[2017-07-04] MEDS ORDERED: Miralax 17gm pkt ORAL PRN
[2017-07-04] MEDS ORDERED: Morphine Sulfate 2mg/ml Inj IVP PRN
[2017-07-04] MEDS: D5 1/2NS 1,000 ML IV SCH ×2 (01:03→12:46)
[2017-07-04] MEDS: Mylanta II UD 30ml ORAL PRN (01:18)
[2017-07-04] MEDS: NovoLOG Insulin Flexpen SUBQ SCH ×4 (06:30→21:13)
[2017-07-04] MEDS ORDERED: chlorproMAZINE 10mg tab ORAL PRN (07:30)
[2017-07-04] MEDS: Nortriptyline 25mg cap ORAL SCH (08:48)
--- NOTE | 2017-07-04 09:56 | Diagnostic Imaging Report ---
Indication: Chest pain Technique: One view of the chest Comparison: none Findings: Lungs and pleural spaces are clear. Heart size is normal. No significant change Impression: No acute process
--- NOTE | 2017-07-04 12:35 | GI Initial Consult Note ---
History of Present Illness General Date patient seen: Jul 04, 2017 Time patient seen: 12:31 Reason for Hospitalization: Vomiting Referring physician: KAREEN WAITE Reason for Consultation: GI BLEED Present Illness HPI 52-year-old male, history of hypertension and diabetes, not on aspirin or any blood thinners, p/w abdominal pain nausea vomiting for 3 days. Today vomiting blood. Pain is all from her abdomen but especially in the epigastric area that occurred after vomiting, intermittent, burning, 5/10 Pt reports n/v, more than 5 episodes of vomiting per day, today states that it was dark red, Denies any diarrhea but states that he had 2 episodes of black stool today Denies fever, chills. States that he had a colonoscopy performed within the last 2-3 months, no abnormalities, has never had an endoscopy. Denies any chronic use of any aspirin or NSAIDs, states that he was never a chronic alcoholic He has never vomited blood or had melena in the past GI consulted for GI bleed. HPI as noted above. Pt seen on floor, awake A&Ox4 NAD with no active s/sx of N/V/D. No noted episodes of emesis noted by RN this shift. Pt c/o of abdominal bloating. Hgb stable at this time. Presents with elevated troponin levels, mild lipase elevation and utox positive for marijuana. Patient is a life time user, states he smokes on a daily basis. States he has had a colonoscopy performed at [facility] recently but cannot recall his findings. Home Meds Active Scripts Famotidine (PEPCID) 40 Mg Tablet, 40 MG PO DAILY, #7 TAB 0 Refills Prov:DANDRE ANTOINE D.O. 07/01/17 Metoclopramide Hcl* (REGLAN*) 5 Mg Tablet, 5 MG ORAL EVERY 8 HOURS, #10 TAB Prov:DANDRE ANTOINE.OObdulia 07/01/17 Tramadol Hcl* (ULTRAM*) 50 Mg Tablet, 50 MG ORAL Q6H Y for For Pain, #10 TAB 0 Refills Prov:DIEGO TRIPLETT M.D. 02/17/17 [place]-3 Acid Ethyl Esters (LOVAZA) 1 Gm Capsule, 1 GM ORAL DAILY, #30 CAP 0 Refills Prov:Jd Dominguez 08/02/16 Reported Medications Metformin Hcl* (METFORMIN HCL*) 1,000 Mg Tablet, 1000 MG ORAL BID, TAB 11/05/16 Gabapentin* (GABAPENTIN*) 300 Mg Capsule, 300 MG ORAL BID, CAP 0 Refills 11/05/16 Nortriptyline Hcl* (PAMELOR*) 25 Mg Capsule, 25 MG ORAL HS, #10 CAP 0 Refills 11/05/16 Methocarbamol* (METHOCARBAMOL*) 500 Mg Tablet, 500 MG ORAL Q8HR Y for For Pain, #15 TAB 0 Refills 11/05/16 Albuterol Sulfate (VENTOLIN HFA) 18 Gm Hfa.aer.ad, 1 PUFF INH EVERY 6 HOURS, # 18 GM 0 Refills 11/05/16 Allergies: Coded Allergies: No Known Allergies (Unverified , 08/11/14) Patient History History Provided By: Patient, Medical Record PMH Narrative Past Medical History: see triage record Past Surgical History: none Pertinent Family History: none Reviewed Nursing Documentation: PMH: Agreed, PSxH: Agreed Nursing Documentation-PMH Hx Hypertension: Yes Hx Asthma: Yes Hx Diabetes: Yes Review of Systems All Other Systems: negative except mentioned in HPI Physical Exam Vital Signs Date Time Temp Pulse Resp B/P (MAP) Pulse Ox O2 Delivery O2 Flow Rate FiO2 07/03/17 18:39 98.1 111 24 88/58 100 Room Air Sp02 EP Interpretation: reviewed, normal Labs Laboratory Tests Test 07/03/17 19:00 07/03/17 19:22 07/03/17 22:15 White Blood Count 6.9 K/UL (4.8-10.8) 7.8 K/UL (4.8-10.8) Red Blood Count 6.28 M/UL (4.70-6.10) H 5.46 M/UL (4.70-6.10) Hemoglobin 18.5 G/DL (14.2-18.0) *H 16.4 G/DL (14.2-18.0) Hematocrit 56.5 % (42.0-52.0) H 49.7 % (42.0-52.0) Mean Corpuscular Volume 90 FL (80-99) 91 FL (80-99) Mean Corpuscular Hemoglobin 29.5 PG (27.0-31.0) 30.0 PG (27.0-31.0) Mean Corpuscular Hemoglobin Concent 32.8 G/DL (32.0-36.0) 32.9 G/DL (32.0-36.0) Red Cell Distribution Width 13.1 % (11.6-14.8) 13.2 % (11.6-14.8) Platelet Count 376 K/UL (150-450) 329 K/UL (150-450) Mean Platelet Volume 6.2 FL (6.5-10.1) L 6.1 FL (6.5-10.1) L Neutrophils (%) (Auto) 75.4 % (45.0-75.0) H 76.7 % (45.0-75.0) H Lymphocytes (%) (Auto) 19.9 % (20.0-45.0) L 16.7 % (20.0-45.0) L Monocytes (%) (Auto) 2.9 % (1.0-10.0) 4.1 % (1.0-10.0) Eosinophils (%) (Auto) 0.2 % (0.0-3.0) 0.2 % (0.0-3.0) Basophils (%) (Auto) 1.5 % (0.0-2.0) 2.3 % (0.0-2.0) H Prothrombin Time 10.9 SEC (9.30-11.50) Prothromb Time International Ratio 1.0 (0.9-1.1) Activated Partial Thromboplast Time 33 SEC (23-33) Sodium Level 136 MMOL/L (136-145) Potassium Level 2.9 MMOL/L (3.5-5.1) L Chloride Level 97 MMOL/L (98-107) L Carbon Dioxide Level 26 MMOL/L (21-32) Anion Gap 13 mmol/L (5-15) Blood Urea Nitrogen 20 mg/dL (7-18) H Creatinine 1.1 MG/DL (0.55-1.30) Estimat Glomerular Filtration Rate > 60 mL/min (>60) Glucose Level 122 MG/DL (74-106) H Lactic Acid Level 2.40 mmol/L (0.66-2.22) H 1.20 mmol/L (0.66-2.22) Calcium Level 9.9 MG/DL (8.5-10.1) Total Bilirubin 0.7 MG/DL (0.2-1.0) Aspartate Amino Transf (AST/SGOT) 29 U/L (15-37) Alanine Aminotransferase (ALT/SGPT) 36 U/L (12-78) Alkaline Phosphatase 126 U/L (46-116) H Troponin I 0.078 ng/mL (0.000-0.056) 0.074 ng/mL (0.000-0.056) Pro-B-Type Natriuretic Peptide 273 pg/mL (0-125) H Total Protein 8.7 G/DL (6.4-8.2) H Albumin 4.3 G/DL (3.4-5.0) Globulin 4.4 g/dL Albumin/Globulin Ratio 1.0 (1.0-2.7) Lipase 64 U/L (73-393) L Urine Color Pale yellow Urine Appearance Clear Urine pH 5 (4.5-8.0) Urine Specific [place] 1.010 (1.005-1.035) Urine Protein Negative (NEGATIVE) Urine Glucose (UA) 4+ (NEGATIVE) H Urine Ketones 4+ (NEGATIVE) H Urine Occult Blood 1+ (NEGATIVE) H Urine Nitrite Negative (NEGATIVE) Urine Bilirubin Negative (NEGATIVE) Urine Urobilinogen Normal MG/DL (0.0-1.0) Urine Leukocyte Esterase Negative (NEGATIVE) Urine RBC 0-2 /HPF (0 - 0) H Urine WBC 0-2 /HPF (0 - 0) Urine Squamous Epithelial Cells None /LPF (NONE/OCC) Urine Bacteria Occasional /HPF (NONE) Urine Opiates Screen Negative (NEGATIVE) Urine Barbiturates Screen Negative (NEGATIVE) Phencyclidine (PCP) Screen Negative (NEGATIVE) Urine Amphetamines Screen Negative (NEGATIVE) Urine Benzodiazepines Screen Negative (NEGATIVE) Urine Cocaine Screen Negative (NEGATIVE) Urine Marijuana (THC) Screen Positive (NEGATIVE) H General Appearance: well appearing, no apparent distress, alert Head: normocephalic EENT: PERRL/EOMI, normal ENT inspection Neck: supple Respiratory: normal breath sounds, no respiratory distress Cardiovascular: normal rate Gastrointestinal: normal inspection, non tender, soft, normal bowel sounds, non -distended Rectal: deferred Genitourinary: deferred Musculoskeletal: normal inspection, back normal Neurologic: normal inspection, alert, oriented x3, responsive Psychiatric: normal inspection, judgement/insight normal, memory normal Skin: normal inspection, normal color, no rash, warm/dry, palpation normal, well hydrated Lymphatic: normal inspection, no adenopathy Current Medications Current Medications Medications (Trade) Dose Ordered Sig/Macy Route PRN Reason Start Time Stop Time Status Last Admin Dose Admin Acetaminophen (Tylenol) 650 mg Q4H PRN ORAL fever 07/04/17 00:00 08/03/17 00:00 Al Hydroxide/Mg Hydroxide (Mylanta II) 30 ml Q6H PRN ORAL dyspepsia 07/04/17 00:00 08/03/17 00:00 07/04/17 01:18 Chlorpromazine (Thorazine) 10 mg Q6H PRN ORAL HICCUPS 07/04/17 07:30 08/03/17 07:29 07/04/17 08:48 Dextrose (Dextrose 50%) STAT PRN IV Hypoglycemia 07/04/17 00:00 08/03/17 00:00 Dextrose/Sodium Chloride 1,000 ml @ 75 mls/hr [id number] IV 07/04/17 00:00 08/03/17 00:00 07/04/17 01:03 Diphenhydramine HCl (Benadryl) 25 mg Q6H PRN ORAL Itching/Pruritis 07/04/17 00:00 08/03/17 00:00 Gabapentin (Neurontin) 300 mg BID@0900,2100 ORAL 07/04/17 09:00 08/03/17 08:59 07/04/17 08:48 Insulin Aspart (NovoLOG) BEFORE MEALS AND HS SUBQ 07/04/17 06:30 08/03/17 06:29 Morphine Sulfate (Morphine Sulfate) 2 mg Q4H PRN IVP severe Pain (Pain Scale 7-10) 07/04/17 00:00 07/11/17 00:00 07/04/17 04:54 Nitroglycerin (Ntg) 0.4 mg Q5M X 3 DOSES PRN SL Prn Chest Pain 07/04/17 00:00 08/03/17 00:00 Nortriptyline HCl (Pamelor) 25 mg DAILY ORAL 07/04/17 09:00 08/03/17 08:59 07/04/17 08:48 Ondansetron HCl (Zofran) 4 mg Q6H PRN IVP Nausea & Vomiting 07/04/17 00:00 08/03/17 00:00 07/04/17 08:48 Polyethylene Glycol (Miralax) 17 gm HSPRN PRN ORAL Constipation 07/04/17 00:00 08/03/17 00:00 Temazepam (Restoril) 15 mg HSPRN PRN ORAL Insomnia 07/04/17 00:00 07/11/17 00:00 GI: Plan Problems: (1) Cyclic vomiting syndrome (2) Upper GI bleed (3) Intractable nausea and vomiting (4) Dehydration (5) Abdominal cramping (6) Substance abuse (7) Diabetes Plan defer EGD at this time given stable Hgb monitor H&H send OB stool r/o GI bleed zofran prn, reglan for persistent N/V CLD, adv as tolerated ppi fu labs outpatient test for SIBO Discussed with Dr. Isaac. Thank you for this patient referral, we will follow. Gem Triplett N.P. Jul 04, 2017 12:35
--- NOTE | 2017-07-04 12:49 | History and Physical ---
History of Present Illness General Date patient seen: Jul 03, 2017 Reason for Hospitalization: Vomiting Present Illness HPI 52-year-old male, history of hypertension and diabetes presented to ER with abdominal pain nausea vomiting for 3 days. Today vomiting blood. Pt reports n/v, more than 5 episodes of vomiting per day, today states that it was dark red, Denies any diarrhea but states that he had 2 episodes of black stool today. He is admitted to [facility] for upper GI bleeding Allergies: Coded Allergies: No Known Allergies (Unverified , 08/11/14) Medication History Scheduled Albuterol Sulfate (Ventolin Hfa), 1 PUFF INH EVERY 6 HOURS, (Reported) Famotidine (Pepcid), 40 MG PO DAILY Gabapentin* (Gabapentin*), 300 MG ORAL BID, (Reported) Metformin Hcl* (Metformin Hcl*), 1,000 MG ORAL BID, (Reported) Metoclopramide Hcl* (Reglan*), 5 MG ORAL EVERY 8 HOURS Nortriptyline Hcl* (Pamelor*), 25 MG ORAL HS, (Reported) [place]-3 Acid Ethyl Esters (Lovaza), 1 GM ORAL DAILY Scheduled PRN Methocarbamol* (Methocarbamol*), 500 MG ORAL Q8HR PRN for For Pain, (Reported) Tramadol Hcl* (Ultram*), 50 MG ORAL Q6H PRN for For Pain Patient History Healthcare decision maker N Resuscitation status Full Code Advanced Directive on File No Past Medical/Surgical History Past Medical/Surgical History: (1) Neuropathy (2) Diabetes Review of Systems Gastrointestinal: Reports: abdominal pain, vomiting Physical Exam General Appearance: WD/WN Lines, tubes and drains: peripheral HEENT: normocephalic, atraumatic Neck: non-tender, normal alignment Respiratory/Chest: chest wall non-tender, lungs clear Cardiovascular/Chest: normal peripheral pulses Abdomen: normal bowel sounds, soft Genitourinary/Rectal: normal genital exam, normal rectal exam Extremities: normal range of motion, non-tender Skin Exam: normal pigmentation Neurologic: hospital director II-XII grossly normal Last 24 Hour Vital Signs Date Time Temp Pulse Resp B/P (MAP) Pulse Ox O2 Delivery O2 Flow Rate FiO2 07/04/17 12:02 97.9 90 135/77 07/04/17 11:15 89 07/04/17 08:00 128/82 07/04/17 08:00 84 12/4/17 06:32 139/94 07/04/17 05:24 97.3 07/04/17 05:05 97.3 16 153/100 98 Room Air 07/04/17 04:00 107 07/04/17 00:00 97 07/04/17 00:00 98.4 16 145/100 98 Room Air 07/03/17 23:35 98.1 92 29 179/88 100 Room Air 07/03/17 22:25 98.1 92 29 179/88 100 Room Air 07/03/17 21:23 98.1 07/03/17 18:50 96 22 155/84 98 Room Air 07/03/17 18:39 98.1 111 24 88/58 100 Room Air Laboratory Tests Test 07/03/17 19:00 07/03/17 19:22 07/03/17 22:15 White Blood Count 6.9 K/UL (4.8-10.8) 7.8 K/UL (4.8-10.8) Red Blood Count 6.28 M/UL (4.70-6.10) H 5.46 M/UL (4.70-6.10) Hemoglobin 18.5 G/DL (14.2-18.0) *H 16.4 G/DL (14.2-18.0) Hematocrit 56.5 % (42.0-52.0) H 49.7 % (42.0-52.0) Mean Corpuscular Volume 90 FL (80-99) 91 FL (80-99) Mean Corpuscular Hemoglobin 29.5 PG (27.0-31.0) 30.0 PG (27.0-31.0) Mean Corpuscular Hemoglobin Concent 32.8 G/DL (32.0-36.0) 32.9 G/DL (32.0-36.0) Red Cell Distribution Width 13.1 % (11.6-14.8) 13.2 % (11.6-14.8) Platelet Count 376 K/UL (150-450) 329 K/UL (150-450) Mean Platelet Volume 6.2 FL (6.5-10.1) L 6.1 FL (6.5-10.1) L Neutrophils (%) (Auto) 75.4 % (45.0-75.0) H 76.7 % (45.0-75.0) H Lymphocytes (%) (Auto) 19.9 % (20.0-45.0) L 16.7 % (20.0-45.0) L Monocytes (%) (Auto) 2.9 % (1.0-10.0) 4.1 % (1.0-10.0) Eosinophils (%) (Auto) 0.2 % (0.0-3.0) 0.2 % (0.0-3.0) Basophils (%) (Auto) 1.5 % (0.0-2.0) 2.3 % (0.0-2.0) H Prothrombin Time 10.9 SEC (9.30-11.50) Prothromb Time International Ratio 1.0 (0.9-1.1) Activated Partial Thromboplast Time 33 SEC (23-33) Sodium Level 136 MMOL/L (136-145) Potassium Level 2.9 MMOL/L (3.5-5.1) L Chloride Level 97 MMOL/L (98-107) L Carbon Dioxide Level 26 MMOL/L (21-32) Anion Gap 13 mmol/L (5-15) Blood Urea Nitrogen 20 mg/dL (7-18) H Creatinine 1.1 MG/DL (0.55-1.30) Estimat Glomerular Filtration Rate > 60 mL/min (>60) Glucose Level 122 MG/DL (74-106) H Lactic Acid Level 2.40 mmol/L (0.66-2.22) H 1.20 mmol/L (0.66-2.22) Calcium Level 9.9 MG/DL (8.5-10.1) Total Bilirubin 0.7 MG/DL (0.2-1.0) Aspartate Amino Transf (AST/SGOT) 29 U/L (15-37) Alanine Aminotransferase (ALT/SGPT) 36 U/L (12-78) Alkaline Phosphatase 126 U/L (46-116) H Troponin I 0.078 ng/mL (0.000-0.056) 0.074 ng/mL (0.000-0.056) Pro-B-Type Natriuretic Peptide 273 pg/mL (0-125) H Total Protein 8.7 G/DL (6.4-8.2) H Albumin 4.3 G/DL (3.4-5.0) Globulin 4.4 g/dL Albumin/Globulin Ratio 1.0 (1.0-2.7) Lipase 64 U/L (73-393) L Urine Color Pale yellow Urine Appearance Clear Urine pH 5 (4.5-8.0) Urine Specific [place] 1.010 (1.005-1.035) Urine Protein Negative (NEGATIVE) Urine Glucose (UA) 4+ (NEGATIVE) H Urine Ketones 4+ (NEGATIVE) H Urine Occult Blood 1+ (NEGATIVE) H Urine Nitrite Negative (NEGATIVE) Urine Bilirubin Negative (NEGATIVE) Urine Urobilinogen Normal MG/DL (0.0-1.0) Urine Leukocyte Esterase Negative (NEGATIVE) Urine RBC 0-2 /HPF (0 - 0) H Urine WBC 0-2 /HPF (0 - 0) Urine Squamous Epithelial Cells None /LPF (NONE/OCC) Urine Bacteria Occasional /HPF (NONE) Urine Opiates Screen Negative (NEGATIVE) Urine Barbiturates Screen Negative (NEGATIVE) Phencyclidine (PCP) Screen Negative (NEGATIVE) Urine Amphetamines Screen Negative (NEGATIVE) Urine Benzodiazepines Screen Negative (NEGATIVE) Urine Cocaine Screen Negative (NEGATIVE) Urine Marijuana (THC) Screen Positive (NEGATIVE) H Height (Feet): 5 Height (Inches): 5.00 Weight (Pounds): 140 Medications Current Medications Medications (Trade) Dose Ordered Sig/Macy Route PRN Reason Start Time Stop Time Status Last Admin Dose Admin Acetaminophen (Tylenol) 650 mg Q4H PRN ORAL fever 07/04/17 00:00 08/03/17 00:00 Al Hydroxide/Mg Hydroxide (Mylanta II) 30 ml Q6H PRN ORAL dyspepsia 07/04/17 00:00 08/03/17 00:00 07/04/17 01:18 Chlorpromazine (Thorazine) 10 mg Q6H PRN ORAL HICCUPS 07/04/17 07:30 08/03/17 07:29 07/04/17 08:48 Dextrose (Dextrose 50%) STAT PRN IV Hypoglycemia 07/04/17 00:00 08/03/17 00:00 Dextrose/Sodium Chloride 1,000 ml @ 75 mls/hr [id number] IV 07/04/17 00:00 08/03/17 00:00 07/04/17 01:03 Diphenhydramine HCl (Benadryl) 25 mg Q6H PRN ORAL Itching/Pruritis 07/04/17 00:00 08/03/17 00:00 Gabapentin (Neurontin) 300 mg BID@0900,2100 ORAL 07/04/17 09:00 08/03/17 08:59 07/04/17 08:48 Insulin Aspart (NovoLOG) BEFORE MEALS AND HS SUBQ 07/04/17 06:30 08/03/17 06:29 Morphine Sulfate (Morphine Sulfate) 2 mg Q4H PRN IVP severe Pain (Pain Scale 7-10) 07/04/17 00:00 07/11/17 00:00 07/04/17 04:54 Nitroglycerin (Ntg) 0.4 mg Q5M X 3 DOSES PRN SL Prn Chest Pain 07/04/17 00:00 08/03/17 00:00 Nortriptyline HCl (Pamelor) 25 mg DAILY ORAL 07/04/17 09:00 08/03/17 08:59 07/04/17 08:48 Ondansetron HCl (Zofran) 4 mg Q6H PRN IVP Nausea & Vomiting 07/04/17 00:00 08/03/17 00:00 07/04/17 08:48 Pantoprazole (Protonix) 40 mg DAILY ORAL 07/05/17 09:00 08/04/17 08:59 UNV Polyethylene Glycol (Miralax) 17 gm HSPRN PRN ORAL Constipation 07/04/17 00:00 08/03/17 00:00 Temazepam (Restoril) 15 mg HSPRN PRN ORAL Insomnia 07/04/17 00:00 07/11/17 00:00 Assessment/Plan Problem List: (1) Upper GI bleeding ICD Codes: K92.2 - Gastrointestinal hemorrhage, unspecified SNOMED: 36986956 (2) Intractable nausea and vomiting ICD Codes: R11.2 - Nausea with vomiting, unspecified SNOMED: 380778425, 704693834 (3) Non-ST elevation (NSTEMI) myocardial infarction ICD Codes: I21.4 - Non-ST elevation (NSTEMI) myocardial infarction SNOMED: 277614297 (4) Diabetes ICD Codes: E11.9 - Type 2 diabetes mellitus without complications SNOMED: 73048078 (5) Hypertension ICD Codes: I10 - Essential (primary) hypertension SNOMED: 89851696 Assessment/Plan NPO IV fluids check h/h symptomatic treatment. sliding scale cardio evaluatin echocardiogram KAREEN BRAXTON Jul 04, 2017 12:49
--- NOTE | 2017-07-04 12:55 | Pulmonology Progress Note ---
Assessment/Plan Problems: (1) Upper GI bleeding (2) Intractable nausea and vomiting (3) Non-ST elevation (NSTEMI) myocardial infarction (4) Diabetes (5) Hypertension Assessment/Plan check h/h h2 millicent diet as per GI check troponin echo cardiogram Subjective ROS Limited/Unobtainable: No Interval Events: no new complains Constitutional: Reports: no symptoms HEENT: Repors: no symptoms Respiratory: Reports: no symptoms Allergies: Coded Allergies: No Known Allergies (Unverified , 08/11/14) Objective Last 24 Hour Vital Signs Date Time Temp Pulse Resp B/P (MAP) Pulse Ox O2 Delivery O2 Flow Rate FiO2 07/04/17 12:02 97.9 90 135/77 07/04/17 11:15 89 07/04/17 08:00 128/82 07/04/17 08:00 84 07/04/17 06:32 139/94 07/04/17 05:24 97.3 07/04/17 05:05 97.3 16 153/100 98 Room Air 07/04/17 04:00 107 07/04/17 00:00 97 07/04/17 00:00 98.4 16 145/100 98 Room Air 07/03/17 23:35 98.1 92 29 179/88 100 Room Air 07/03/17 22:25 98.1 92 29 179/88 100 Room Air 07/03/17 21:23 98.1 07/03/17 18:50 96 22 155/84 98 Room Air 07/03/17 18:39 98.1 111 24 88/58 100 Room Air General Appearance: WD/WN HEENT: normocephalic, atraumatic Respiratory/Chest: chest wall non-tender, lungs clear Cardiovascular: normal peripheral pulses, normal rate Abdomen: normal bowel sounds, soft, non tender Genitourinary: normal external genitalia Extremities: no cyanosis Skin: no lesions Neurologic/Psychiatric: jira developer II-XII grossly normal, abnormal gait, normal mood/ affect Lymphatic: no groin adenopathy Musculoskeletal: normal muscle bulk Laboratory Tests 07/03/17 19:00: White Blood Count 6.9, Red Blood Count 6.28H, Hemoglobin 18.5*H, Hematocrit 56.5H, Mean Corpuscular Volume 90, Mean Corpuscular Hemoglobin 29.5, Mean Corpuscular Hemoglobin Concent 32.8, Red Cell Distribution Width 13.1, Platelet Count 376, Mean Platelet Volume 6.2L, Neutrophils (%) (Auto) 75.4H, Lymphocytes (%) (Auto) 19.9L, Monocytes (%) (Auto) 2.9, Eosinophils (%) (Auto) 0.2, Basophils (%) (Auto) 1.5, Prothrombin Time 10.9, Prothromb Time International Ratio 1.0, Activated Partial Thromboplast Time 33, Sodium Level 136, Potassium Level 2.9L, Chloride Level 97L, Carbon Dioxide Level 26, Anion Gap 13, Blood Urea Nitrogen 20H, Creatinine 1.1, Estimat Glomerular Filtration Rate > 60, Glucose Level 122H, Lactic Acid Level 2.40H, Calcium Level 9.9, Total Bilirubin 0.7, Aspartate Amino Transf (AST/SGOT) 29, Alanine Aminotransferase (ALT/SGPT) 36, Alkaline Phosphatase 126H, Troponin I 0.078H, Pro-B-Type Natriuretic Peptide 273H, Total Protein 8.7H, Albumin 4.3, Globulin 4.4, Albumin/Globulin Ratio 1.0, Lipase 64L 07/03/17 19:22: Urine Color Pale yellow, Urine Appearance Clear, Urine pH 5, Urine Specific [place] 1.010, Urine Protein Negative, Urine Glucose (UA) 4+H, Urine Ketones 4+H , Urine Occult Blood 1+H, Urine Nitrite Negative, Urine Bilirubin Negative, Urine Urobilinogen Normal, Urine Leukocyte Esterase Negative, Urine RBC 0-2H, Urine WBC 0-2, Urine Squamous Epithelial Cells None, Urine Bacteria Occasional, Urine Opiates Screen Negative, Urine Barbiturates Screen Negative, Phencyclidine (PCP) Screen Negative, Urine Amphetamines Screen Negative, Urine Benzodiazepines Screen Negative, Urine Cocaine Screen Negative, Urine Marijuana (THC) Screen PositiveH 07/03/17 22:15: White Blood Count 7.8, Red Blood Count 5.46, Hemoglobin 16.4, Hematocrit 49.7, Mean Corpuscular Volume 91, Mean Corpuscular Hemoglobin 30.0, Mean Corpuscular Hemoglobin Concent 32.9, Red Cell Distribution Width 13.2, Platelet Count 329, Mean Platelet Volume 6.1L, Neutrophils (%) (Auto) 76.7H, Lymphocytes (%) (Auto) 16.7L, Monocytes (%) (Auto) 4.1, Eosinophils (%) (Auto) 0.2, Basophils (%) (Auto ) 2.3H, Lactic Acid Level 1.20, Troponin I 0.074H Current Medications Medications (Trade) Dose Ordered Sig/Macy Route PRN Reason Start Time Stop Time Status Last Admin Dose Admin Acetaminophen (Tylenol) 650 mg Q4H PRN ORAL fever 07/04/17 00:00 08/03/17 00:00 Al Hydroxide/Mg Hydroxide (Mylanta II) 30 ml Q6H PRN ORAL dyspepsia 07/04/17 00:00 08/03/17 00:00 07/04/17 01:18 Chlorpromazine (Thorazine) 10 mg Q6H PRN ORAL HICCUPS 07/04/17 07:30 08/03/17 07:29 07/04/17 08:48 Dextrose (Dextrose 50%) STAT PRN IV Hypoglycemia 07/04/17 00:00 08/03/17 00:00 Dextrose/Sodium Chloride 1,000 ml @ 75 mls/hr [id number] IV 07/04/17 00:00 08/03/17 00:00 07/04/17 01:03 Diphenhydramine HCl (Benadryl) 25 mg Q6H PRN ORAL Itching/Pruritis 07/04/17 00:00 08/03/17 00:00 Gabapentin (Neurontin) 300 mg BID@0900,2100 ORAL 07/04/17 09:00 08/03/17 08:59 07/04/17 08:48 Insulin Aspart (NovoLOG) BEFORE MEALS AND HS SUBQ 07/04/17 06:30 08/03/17 06:29 Morphine Sulfate (Morphine Sulfate) 2 mg Q4H PRN IVP severe Pain (Pain Scale 7-10) 07/04/17 00:00 07/11/17 00:00 07/04/17 04:54 Nitroglycerin (Ntg) 0.4 mg Q5M X 3 DOSES PRN SL Prn Chest Pain 07/04/17 00:00 08/03/17 00:00 Nortriptyline HCl (Pamelor) 25 mg DAILY ORAL 07/04/17 09:00 08/03/17 08:59 07/04/17 08:48 Ondansetron HCl (Zofran) 4 mg Q6H PRN IVP Nausea & Vomiting 07/04/17 00:00 08/03/17 00:00 07/04/17 08:48 Pantoprazole (Protonix) 40 mg DAILY ORAL 07/05/17 09:00 08/04/17 08:59 UNV Polyethylene Glycol (Miralax) 17 gm HSPRN PRN ORAL Constipation 07/04/17 00:00 08/03/17 00:00 Temazepam (Restoril) 15 mg HSPRN PRN ORAL Insomnia 07/04/17 00:00 07/11/17 00:00 KAREEN BRAXTON Jul 04, 2017 12:55
[2017-07-04] MEDS ORDERED: Morphine Sulfate 2mg/ml Inj IV PRN (13:00)
[2017-07-04] MEDS ORDERED: Nitroglycerin Subl 0.4mg tab SL PRN ×2 (13:00)
--- NOTE | 2017-07-04 18:03 | Cardiology Report ---
APPROVED REPORT EXAM: Two-dimensional and M-mode echocardiogram with Doppler and color Doppler. INDICATION Left ventricular function M-Mode DIMENSIONS IVSd1.4 (0.7-1.1cm)Left Atrium (MM)3.6 (1.6-4.0cm) LVDd3.6 (3.5-5.6cm)Aortic Root2.8 (2.0-3.7cm) PWd1.9 (0.7-1.1cm)Aortic Cusp Exc.1.7 (1.5-2.0cm) LVDs1.5 (2.5-4.0cm) PWs2.3 cm Normal left ventricular chamber size, systolic function and wall motion. Left ventricular ejection fraction estimated to be 65%. Moderate left ventricular hypertrophy. Anterior Echo-free space, may be due to pericardial fat or effusion. All other cardiac chamber sizes are within normal limits. Mild focal aortic valve sclerosis with adequate cusp excursion. Mildly thickened mitral valve leaflets with normal excursion. Mild mitral annulus and aortic root calcification. Pulmonic valve not well visualized. Normal tricuspid valve structure. IVC at normal size with physiologic collapse. A color flow and spectral Doppler study was performed and revealed: No aortic regurgitation. Peak pressure gradient for LVOT is slightly elevated because of hyperdynamic systolic function. Mild mitral regurgitation. Mitral diastolic velocities suggest mild left ventricular dysfunction (Grade I). Mild tricuspid regurgitation. Tricuspid systolic velocities suggests peak right ventricular systolic pressure of 35 mmHg, consistent with mild pulmonary hypertension. No pulmonic regurgitation present.
--- NOTE | 2017-07-04 18:37 | Cardiology Report ---
APPROVED REPORT EKG Measurement Heart [id number] Sinus rhythm with non-conducted atrial premature complex Right atrial enlargement Borderline ECG
[2017-07-05] VITALS (7 sets, daily range): BP systolic 119–171; BP diastolic 78–110
[2017-07-05] MEDS: D5 1/2NS 1,000 ML IV SCH ×3 (03:02→22:00)
[2017-07-05 06:20] LABS: BASOPHILS % (AUTO) 3.9 % (0.0-2.0); EOSINOPHILS % (AUTO) 3.7 % (0.0-3.0); LYMPHOCYTES % (AUTO) 28.2 % (20.0-45.0); MEAN CORPUSCULAR HEMOGLOBIN 30.5 PG (27.0-31.0); MEAN CORPUSCULAR HGB CONC 33.7 G/DL (32.0-36.0); MEAN CORPUSCULAR VOLUME 91 FL (80-99); MEAN PLATELET VOLUME 6.1 FL (6.5-10.1); MONOCYTES % (AUTO) 8.6 % (1.0-10.0); NEUTROPHILS % (AUTO) 55.7 % (45.0-75.0); PLATELET COUNT 308 K/UL (150-450); RED BLOOD COUNT 5.38 M/UL (4.70-6.10); WHITE BLOOD COUNT 6.5 K/UL (4.8-10.8)
[2017-07-05] MEDS: NovoLOG Insulin Flexpen SUBQ SCH ×4 (06:27→21:00)
[2017-07-05 06:48] LABS: ALANINE AMINOTRANSFERASE 22 U/L (12-78); ALBUMIN/GLOBULIN RATIO 0.9 (1.0-2.7); AMYLASE 28 U/L (25-115); ANION GAP 10 mmol/L (5-15); ASPARTATE AMINO TRANSFERASE 17 U/L (15-37); CALCIUM 8.6 MG/DL (8.5-10.1); CARBON DIOXIDE 24 MMOL/L (21-32); CHLORIDE 103 MMOL/L (98-107); CREATININE 0.8 MG/DL (0.55-1.30); GLOMERULAR FILTRATION RATE > 60 mL/min (>60); LIPASE 66 U/L (73-393); SODIUM 137 MMOL/L (136-145); TOTAL PROTEIN 6.6 G/DL (6.4-8.2)
[2017-07-05 06:59] LABS: INR 1.1 (0.9-1.1); PROTHROMBIN TIME 11.4 SEC (9.30-11.50)
[2017-07-05] MEDS: Mylanta II UD 30ml ORAL PRN ×2 (09:00→21:12)
[2017-07-05] MEDS ORDERED: Ketorolac 30mg Inj IV PRN (10:15)
--- NOTE | 2017-07-05 10:15 | Pulmonology Progress Note ---
Assessment/Plan Problems: (1) Upper GI bleeding (2) Intractable nausea and vomiting (3) Non-ST elevation (NSTEMI) myocardial infarction (4) Diabetes (5) Hypertension Assessment/Plan check h/h, stable h2 millicent diet as per GI check troponin echo cardiogram awaiting cardio consult for high troponin add phenergen for Nausea, decrease morphine Subjective ROS Limited/Unobtainable: No Interval Events: still nauseaos Allergies: Coded Allergies: No Known Allergies (Unverified , 08/11/14) Objective Last 24 Hour Vital Signs Date Time Temp Pulse Resp B/P (MAP) Pulse Ox O2 Delivery O2 Flow Rate FiO2 07/05/17 08:00 97.6 69 19 119/78 98 Room Air 07/05/17 08:00 69 07/05/17 04:00 69 07/05/17 04:00 97.0 80 18 120/80 97 Room Air 07/05/17 00:00 68 07/05/17 00:00 97.0 75 18 126/82 97 Room Air 07/04/17 20:00 81 07/04/17 20:00 97.5 71 18 121/87 96 Room Air 07/04/17 16:00 97.9 93 120/88 07/04/17 16:00 82 07/04/17 12:02 97.9 90 135/77 07/04/17 12:00 84 07/04/17 11:15 89 General Appearance: WD/WN HEENT: normocephalic, atraumatic Cardiovascular: normal peripheral pulses Abdomen: normal bowel sounds, soft, non tender Genitourinary: normal external genitalia Extremities: no cyanosis Skin: no rash, no lesions Microbiology Date/Time Source Procedure Growth Status 07/03/17 19:05 Blood Blood Culture - Preliminary NO GROWTH AFTER 24 HOURS Resulted 07/03/17 19:00 Blood Blood Culture - Preliminary NO GROWTH AFTER 24 HOURS Resulted Laboratory Tests 07/04/17 13:40: Troponin I 0.077H 07/05/17 05:10: Troponin I 0.069H, White Blood Count 6.5, Red Blood Count 5.38, Hemoglobin 16.4 , Hematocrit 48.7, Mean Corpuscular Volume 91, Mean Corpuscular Hemoglobin 30.5 , Mean Corpuscular Hemoglobin Concent 33.7, Red Cell Distribution Width 13.0, Platelet Count 308, Mean Platelet Volume 6.1L, Neutrophils (%) (Auto) 55.7, Lymphocytes (%) (Auto) 28.2, Monocytes (%) (Auto) 8.6, Eosinophils (%) (Auto) 3.7H, Basophils (%) (Auto) 3.9H, Prothrombin Time 11.4, Prothromb Time International Ratio 1.1, Activated Partial Thromboplast Time 32, Sodium Level 137, Potassium Level 3.0L, Chloride Level 103, Carbon Dioxide Level 24, Anion Gap 10, Blood Urea Nitrogen 13, Creatinine 0.8, Estimat Glomerular Filtration Rate > 60, Glucose Level 130H, Calcium Level 8.6, Total Bilirubin 0.5, Aspartate Amino Transf (AST/SGOT) 17, Alanine Aminotransferase (ALT/SGPT) 22, Alkaline Phosphatase 92, Total Protein 6.6, Albumin 3.1L, Globulin 3.5, Albumin/ Globulin Ratio 0.9L, Amylase Level 28, Lipase 66L Current Medications Medications (Trade) Dose Ordered Sig/Macy Route PRN Reason Start Time Stop Time Status Last Admin Dose Admin Acetaminophen (Tylenol) 650 mg Q4H PRN ORAL fever 07/04/17 00:00 08/03/17 00:00 Al Hydroxide/Mg Hydroxide (Mylanta II) 30 ml Q6H PRN ORAL dyspepsia 07/04/17 00:00 08/03/17 00:00 07/05/17 09:00 Chlorpromazine (Thorazine) 10 mg Q6H PRN ORAL HICCUPS 07/04/17 07:30 08/03/17 07:29 07/04/17 08:48 Dextrose (Dextrose 50%) STAT PRN IV Hypoglycemia 07/04/17 00:00 08/03/17 00:00 Dextrose/Sodium Chloride 1,000 ml @ 75 mls/hr [id number] IV 07/04/17 00:00 08/03/17 00:00 07/05/17 03:02 Diphenhydramine HCl (Benadryl) 25 mg Q6H PRN ORAL Itching/Pruritis 07/04/17 00:00 08/03/17 00:00 Gabapentin (Neurontin) 300 mg BID@0900,2100 ORAL 07/04/17 09:00 08/03/17 08:59 07/04/17 21:14 Insulin Aspart (NovoLOG) BEFORE MEALS AND HS SUBQ 07/04/17 06:30 08/03/17 06:29 07/05/17 06:27 Morphine Sulfate (Morphine Sulfate) 2 mg Q4H PRN IV For Pain 07/04/17 13:00 07/11/17 12:59 07/05/17 09:38 Nitroglycerin (Ntg) 0.4 mg Q5M PRN SL Prn Chest Pain 07/04/17 13:00 08/03/17 12:59 Nortriptyline HCl (Pamelor) 25 mg DAILY ORAL 07/04/17 09:00 08/03/17 08:59 07/04/17 08:48 Ondansetron HCl (Zofran) 4 mg Q6H PRN IVP Nausea & Vomiting 07/04/17 00:00 08/03/17 00:00 07/05/17 08:17 Pantoprazole (Protonix) 40 mg DAILY ORAL 07/05/17 09:00 08/04/17 08:59 Polyethylene Glycol (Miralax) 17 gm HSPRN PRN ORAL Constipation 07/04/17 00:00 08/03/17 00:00 Temazepam (Restoril) 15 mg HSPRN PRN ORAL Insomnia 07/04/17 00:00 07/11/17 00:00 KAREEN BRAXTON Jul 05, 2017 10:15
[2017-07-05] MEDS: Nortriptyline 25mg cap ORAL SCH (10:41)
[2017-07-05] MEDS ORDERED: D5 1/2NS 1000ml IV ONE (15:04)
--- NOTE | 2017-07-05 15:41 | GI Progress Note ---
Assessment/Plan Problems: (1) Upper GI bleeding ICD Codes: K92.2 - Gastrointestinal hemorrhage, unspecified SNOMED: 53851313 (2) Cyclic vomiting syndrome ICD Codes: G43.A0 - Cyclical vomiting, not intractable SNOMED: 08279418 (3) Diabetes ICD Codes: E11.9 - Type 2 diabetes mellitus without complications SNOMED: 96539154 (4) Substance abuse ICD Codes: F19.10 - Other psychoactive substance abuse, uncomplicated SNOMED: 03832242 (5) Intractable nausea and vomiting ICD Codes: R11.2 - Nausea with vomiting, unspecified SNOMED: 178296290, 048538325 (6) Food intolerance ICD Codes: K90.4 - Malabsorption due to intolerance, not elsewhere classified SNOMED: 05677043 Status: unchanged Status Narrative Discussed with Dr. Isaac. Assessment/Plan fu cardiology recs defer EGD at this time given stable Hgb ordered UGI Series / esophagram >> HOLD REGLAN monitor H&H send OB stool r/o GI bleed zofran prn, Phenergan for persistent vomiting avoid opioids CLD, adv as tolerated ppi fu labs outpatient test for SIBO Subjective Subjective unable to tolerate CLD nausea with episodes of vomiting, states there is blood feels any PO intake comes back up Objective Last 24 Hour Vital Signs Date Time Temp Pulse Resp B/P (MAP) Pulse Ox O2 Delivery O2 Flow Rate FiO2 07/05/17 15:06 65 07/05/17 11:18 62 07/05/17 11:18 97.0 62 19 135/82 98 Room Air 07/05/17 08:00 97.6 69 19 119/78 98 Room Air 07/05/17 08:00 69 07/05/17 04:00 69 07/05/17 04:00 97.0 80 18 120/80 97 Room Air 07/05/17 00:00 68 07/05/17 00:00 97.0 75 18 126/82 97 Room Air 07/04/17 20:00 81 07/04/17 20:00 97.5 71 18 121/87 96 Room Air 07/04/17 16:00 97.9 93 120/88 07/04/17 16:00 82 Intake and Output 07/05/17 07/06/17 19:00 07:00 Intake Total 225 ml Balance 225 ml IV Total 225 ml Laboratory Tests Test 07/05/17 05:10 White Blood Count 6.5 K/UL (4.8-10.8) Red Blood Count 5.38 M/UL (4.70-6.10) Hemoglobin 16.4 G/DL (14.2-18.0) Hematocrit 48.7 % (42.0-52.0) Mean Corpuscular Volume 91 FL (80-99) Mean Corpuscular Hemoglobin 30.5 PG (27.0-31.0) Mean Corpuscular Hemoglobin Concent 33.7 G/DL (32.0-36.0) Red Cell Distribution Width 13.0 % (11.6-14.8) Platelet Count 308 K/UL (150-450) Mean Platelet Volume 6.1 FL (6.5-10.1) L Neutrophils (%) (Auto) 55.7 % (45.0-75.0) Lymphocytes (%) (Auto) 28.2 % (20.0-45.0) Monocytes (%) (Auto) 8.6 % (1.0-10.0) Eosinophils (%) (Auto) 3.7 % (0.0-3.0) H Basophils (%) (Auto) 3.9 % (0.0-2.0) H Prothrombin Time 11.4 SEC (9.30-11.50) Prothromb Time International Ratio 1.1 (0.9-1.1) Activated Partial Thromboplast Time 32 SEC (23-33) Sodium Level 137 MMOL/L (136-145) Potassium Level 3.0 MMOL/L (3.5-5.1) L Chloride Level 103 MMOL/L (98-107) Carbon Dioxide Level 24 MMOL/L (21-32) Anion Gap 10 mmol/L (5-15) Blood Urea Nitrogen 13 mg/dL (7-18) Creatinine 0.8 MG/DL (0.55-1.30) Estimat Glomerular Filtration Rate > 60 mL/min (>60) Glucose Level 130 MG/DL (74-106) H Calcium Level 8.6 MG/DL (8.5-10.1) Total Bilirubin 0.5 MG/DL (0.2-1.0) Aspartate Amino Transf (AST/SGOT) 17 U/L (15-37) Alanine Aminotransferase (ALT/SGPT) 22 U/L (12-78) Alkaline Phosphatase 92 U/L (46-116) Troponin I 0.069 ng/mL (0.000-0.056) Total Protein 6.6 G/DL (6.4-8.2) Albumin 3.1 G/DL (3.4-5.0) L Globulin 3.5 g/dL Albumin/Globulin Ratio 0.9 (1.0-2.7) L Amylase Level 28 U/L (25-115) Lipase 66 U/L (73-393) L Height (Feet): 5 Height (Inches): 5.00 Weight (Pounds): 140 General Appearance: WD/WN, no apparent distress, alert Cardiovascular: normal rate Respiratory/Chest: normal breath sounds, no respiratory distress Abdominal Exam: normal bowel sounds, non tender, soft Extremities: normal range of motion, non-tender Gem Newton N.P. Jul 05, 2017 15:41
--- NOTE | 2017-07-05 17:16 | Cardiology Progress Note ---
Assessment/Plan Assessment/Plan no sign or sx of coroanry syndrome ekg neg echo normla wall motion the trop level without a peak ketty unlikey ischmemic pain proceed with gi if indicated no indication for nor possible to use any antiplat agent in [facility] to freported gi bleeding [id number] Objective Last 24 Hour Vital Signs Date Time Temp Pulse Resp B/P (MAP) Pulse Ox O2 Delivery O2 Flow Rate FiO2 07/05/17 15:54 97.0 87 19 160/98 98 Room Air 07/05/17 15:06 65 07/05/17 11:18 62 07/05/17 11:18 97.0 62 19 135/82 98 Room Air 07/05/17 08:00 97.6 69 19 119/78 98 Room Air 07/05/17 08:00 69 07/05/17 04:00 69 07/05/17 04:00 97.0 80 18 120/80 97 Room Air 07/05/17 00:00 68 07/05/17 00:00 97.0 75 18 126/82 97 Room Air 07/04/17 20:00 81 07/04/17 20:00 97.5 71 18 121/87 96 Room Air Intake and Output 07/05/17 07/06/17 19:00 07:00 Intake Total 225 ml Balance 225 ml IV Total 225 ml Laboratory Tests Test 07/05/17 05:10 White Blood Count 6.5 K/UL (4.8-10.8) Red Blood Count 5.38 M/UL (4.70-6.10) Hemoglobin 16.4 G/DL (14.2-18.0) Hematocrit 48.7 % (42.0-52.0) Mean Corpuscular Volume 91 FL (80-99) Mean Corpuscular Hemoglobin 30.5 PG (27.0-31.0) Mean Corpuscular Hemoglobin Concent 33.7 G/DL (32.0-36.0) Red Cell Distribution Width 13.0 % (11.6-14.8) Platelet Count 308 K/UL (150-450) Mean Platelet Volume 6.1 FL (6.5-10.1) L Neutrophils (%) (Auto) 55.7 % (45.0-75.0) Lymphocytes (%) (Auto) 28.2 % (20.0-45.0) Monocytes (%) (Auto) 8.6 % (1.0-10.0) Eosinophils (%) (Auto) 3.7 % (0.0-3.0) H Basophils (%) (Auto) 3.9 % (0.0-2.0) H Prothrombin Time 11.4 SEC (9.30-11.50) Prothromb Time International Ratio 1.1 (0.9-1.1) Activated Partial Thromboplast Time 32 SEC (23-33) Sodium Level 137 MMOL/L (136-145) Potassium Level 3.0 MMOL/L (3.5-5.1) L Chloride Level 103 MMOL/L (98-107) Carbon Dioxide Level 24 MMOL/L (21-32) Anion Gap 10 mmol/L (5-15) Blood Urea Nitrogen 13 mg/dL (7-18) Creatinine 0.8 MG/DL (0.55-1.30) Estimat Glomerular Filtration Rate > 60 mL/min (>60) Glucose Level 130 MG/DL (74-106) H Calcium Level 8.6 MG/DL (8.5-10.1) Total Bilirubin 0.5 MG/DL (0.2-1.0) Aspartate Amino Transf (AST/SGOT) 17 U/L (15-37) Alanine Aminotransferase (ALT/SGPT) 22 U/L (12-78) Alkaline Phosphatase 92 U/L (46-116) Troponin I 0.069 ng/mL (0.000-0.056) Total Protein 6.6 G/DL (6.4-8.2) Albumin 3.1 G/DL (3.4-5.0) L Globulin 3.5 g/dL Albumin/Globulin Ratio 0.9 (1.0-2.7) L Amylase Level 28 U/L (25-115) Lipase 66 U/L (73-393) L Microbiology Date/Time Source Procedure Growth Status 07/03/17 19:05 Blood Blood Culture - Preliminary NO GROWTH AFTER 24 HOURS Resulted 07/03/17 19:00 Blood Blood Culture - Preliminary NO GROWTH AFTER 24 HOURS Resulted MARYJANE ROSARIO Jul 05, 2017 17:16
--- NOTE | 2017-07-05 19:32 | Consultation ---
DATE OF CONSULTATION: 07/05/2017 CARDIOLOGY CONSULTATION REFERRING PHYSICIAN: Sebastian Gentile M.D. REASON FOR REFERRAL: Abnormal cardiac enzymes. HISTORY OF PRESENT ILLNESS: This is a 52-year-old gentleman with history of hypertension who has had diabetes for approximately three years comes into the hospital because of abdominal pain, nausea, vomiting, and eventually vomiting of blood for the past few days and some black stools. Really has not had any chest pain. No shortness of breath. No PND. He uses three pillows because of GI issues. No heart pounding or palpitation. No dizziness or lightheadedness. PAST MEDICAL HISTORY: Positive for diabetes and high blood pressure, Huerta's palsy, and history of asthma. No history of heart attack. No cancer. No stroke. No hepatitis or tuberculosis. No ulcers. No kidney problems, liver problems, thyroid problems, anemia, arthritis, HIV, AIDS, or blood clots anywhere. ALLERGIES: He is not allergic to any medications. SOCIAL HISTORY: He smokes cigar he says but not everyday. No alcohol. Denies any drug use. REVIEW OF SYSTEMS: GASTROINTESTINAL: Positive for abdominal pain, nausea, vomiting, diarrhea, black and bloody stools, and bloody vomiting. GENITOURINARY: Denies. PULMONARY: Denies. CONSTITUTIONAL: Denies. NEUROLOGICAL: Some numbness and tingling sensation in his hand. PHYSICAL EXAMINATION: GENERAL: Shows to be middle-aged gentleman, in no respiratory distress. NECK: Supple. No jugular venous distention. LUNGS: Clear to auscultation and percussion. CARDIAC: Regular rate and rhythm. No heaves, thrills, or gallops noted. ABDOMEN: Soft and nontender. Positive bowel sounds. EXTREMITIES: There is no clubbing, cyanosis, nor is there any edema. NEUROLOGICAL: He is awake, alert, responsive, in no apparent respiratory distress. LABORATORY VALUES: An echocardiogram performed shows left ventricular systolic function to be normal. No segmental wall motion abnormalities are noted. Telemetry shows sinus rhythm. EKG shows sinus with some premature atrial complexes. No significant ST-T wave abnormality of any degree at all and repeat EKG also the same without any ST-segment changes. His blood tests also shows white count of 6.5, hemoglobin 16.4, and platelet count of 308. Sodium is 137, potassium 3.2, chloride 103, bicarb 24, BUN of 13, creatinine 0.8, and glucose of 130. Troponins on five separate occasions the first one was 0.032, subsequently he has had 0.078, 0.074, 0.077, and 0.069 today. IMAGING: Chest x-ray on this admission shows no acute lung process. Echocardiogram again as mentioned shows normal wall motion, ejection fraction is normal at 65%, moderate left ventricular hypertrophy is noted. ASSESSMENT AND PLAN: 1. Nausea, vomiting, bloody stools and bloody vomiting. 2. Abnormal cardiac enzymes, nonspecific level. 3. Diabetes. 4. Hypertension. 5. History of Huerta's palsy. 6. History of asthma. PLAN: Dr. Gentile, this patient was seen in cardiac consultation. The patient has had some minor abnormalities of cardiac enzyme. These minor abnormalities do not reach the level to be diagnostic for World Health Criteria for diagnosis of acute myocardial infarction because the levels are persistently minimally elevated without peak or unlikely that these are coronary ischemic related. The patient has no signs or symptoms of coronary ischemia. He has been diabetic only for three years. He has no electrocardiographic abnormalities and he needs a gastrointestinal status to better define as to identify if what to do about any bleeding lesions in the gastrointestinal tract. If needed, endoscopy should be performed and the patient is felt to have acceptable risk for that. Faheem Jimenez M.D. DR: JORDON JOB#: [id number] CC:
[2017-07-05] MEDS ORDERED: Nitroglycerin Subl 0.4mg tab SL PRN (22:00)
[2017-07-06] VITALS (7 sets, daily range): BP systolic 103–156; BP diastolic 76–99
[2017-07-06] MEDS ORDERED: Miralax 17gm pkt ORAL PRN
[2017-07-06] MEDS ORDERED: Mylanta II UD 30ml ORAL PRN
[2017-07-06] MEDS ORDERED: chlorproMAZINE 10mg tab ORAL PRN (01:30)
[2017-07-06] MEDS: NovoLOG Insulin Flexpen SUBQ SCH ×4 (06:13→21:05)
[2017-07-06 06:34] LABS: BASOPHILS % (AUTO) 1.6 % (0.0-2.0); LYMPHOCYTES % (AUTO) 28.5 % (20.0-45.0); MEAN CORPUSCULAR HEMOGLOBIN 30.1 PG (27.0-31.0); MEAN CORPUSCULAR HGB CONC 33.8 G/DL (32.0-36.0); MEAN CORPUSCULAR VOLUME 89 FL (80-99); MEAN PLATELET VOLUME 6.2 FL (6.5-10.1); MONOCYTES % (AUTO) 9.5 % (1.0-10.0); NEUTROPHILS % (AUTO) 57.3 % (45.0-75.0); PLATELET COUNT 307 K/UL (150-450); RED BLOOD COUNT 5.52 M/UL (4.70-6.10); RED CELL DISTRIBUTION WIDTH 12.6 % (11.6-14.8)
[2017-07-06 06:53] LABS: ANION GAP 14 mmol/L (5-15); CALCIUM 8.8 MG/DL (8.5-10.1); CARBON DIOXIDE 23 MMOL/L (21-32); CHLORIDE 98 MMOL/L (98-107); CREATININE 0.8 MG/DL (0.55-1.30); GLOMERULAR FILTRATION RATE > 60 mL/min (>60); POTASSIUM 2.8 MMOL/L (3.5-5.1); SODIUM 135 MMOL/L (136-145)
[2017-07-06] MEDS: Sucralfate 1gm tab ORAL SCH ×3 (08:39→18:12)
[2017-07-06] MEDS: Pantoprazole Inj IVP SCH ×2 (08:39→20:44)
[2017-07-06] MEDS: Nortriptyline 25mg cap ORAL SCH (08:39)
[2017-07-06] MEDS: D5 1/2NS 1,000 ML IV SCH (10:21)
--- NOTE | 2017-07-06 10:34 | GI Progress Note ---
Assessment/Plan Problems: (1) Upper GI bleeding ICD Codes: K92.2 - Gastrointestinal hemorrhage, unspecified SNOMED: 26050379 (2) Cyclic vomiting syndrome ICD Codes: G43.A0 - Cyclical vomiting, not intractable SNOMED: 82702738 (3) Diabetes ICD Codes: E11.9 - Type 2 diabetes mellitus without complications SNOMED: 78228583 (4) Substance abuse ICD Codes: F19.10 - Other psychoactive substance abuse, uncomplicated SNOMED: 92937301 (5) Intractable nausea and vomiting ICD Codes: R11.2 - Nausea with vomiting, unspecified SNOMED: 192085937, 604917538 (6) Food intolerance ICD Codes: K90.4 - Malabsorption due to intolerance, not elsewhere classified SNOMED: 18850939 Status: unchanged Status Narrative Discussed with Dr. Isaac. Assessment/Plan fu cardiology recs >> unlikely coronary ischemic related. defer EGD at this time given stable Hgb ordered UGI Series / esophagram >> HOLD REGLAN monitor H&H fu OB stool r/o GI bleed zofran prn, Phenergan for persistent vomiting avoid opioids CLD, adv as tolerated ppi fu labs outpatient test for SIBO Subjective Subjective unable to tolerate CLD nausea with episodes of vomiting, states there is blood feels any PO intake comes back up Objective Last 24 Hour Vital Signs Date Time Temp Pulse Resp B/P (MAP) Pulse Ox O2 Delivery O2 Flow Rate FiO2 07/06/17 08:00 97.9 82 18 114/81 97 07/06/17 04:00 97.3 93 18 120/95 98 07/06/17 00:00 97.8 98 21 149/89 100 07/05/17 23:45 171/110 07/05/17 22:52 106 20 171/110 100 Room Air 07/05/17 20:00 97.0 100 20 159/95 97 Room Air 07/05/17 15:54 97.0 87 19 160/98 98 Room Air 07/05/17 15:06 65 07/05/17 11:18 62 07/05/17 11:18 97.0 62 19 135/82 98 Room Air Laboratory Tests Test 07/06/17 05:10 White Blood Count 8.0 K/UL (4.8-10.8) Red Blood Count 5.52 M/UL (4.70-6.10) Hemoglobin 16.6 G/DL (14.2-18.0) Hematocrit 49.2 % (42.0-52.0) Mean Corpuscular Volume 89 FL (80-99) Mean Corpuscular Hemoglobin 30.1 PG (27.0-31.0) Mean Corpuscular Hemoglobin Concent 33.8 G/DL (32.0-36.0) Red Cell Distribution Width 12.6 % (11.6-14.8) Platelet Count 307 K/UL (150-450) Mean Platelet Volume 6.2 FL (6.5-10.1) L Neutrophils (%) (Auto) 57.3 % (45.0-75.0) Lymphocytes (%) (Auto) 28.5 % (20.0-45.0) Monocytes (%) (Auto) 9.5 % (1.0-10.0) Eosinophils (%) (Auto) 3.0 % (0.0-3.0) Basophils (%) (Auto) 1.6 % (0.0-2.0) Sodium Level 135 MMOL/L (136-145) L Potassium Level 2.8 MMOL/L (3.5-5.1) L Chloride Level 98 MMOL/L (98-107) Carbon Dioxide Level 23 MMOL/L (21-32) Anion Gap 14 mmol/L (5-15) Blood Urea Nitrogen 12 mg/dL (7-18) Creatinine 0.8 MG/DL (0.55-1.30) Estimat Glomerular Filtration Rate > 60 mL/min (>60) Glucose Level 144 MG/DL (74-106) H Calcium Level 8.8 MG/DL (8.5-10.1) Troponin I 0.069 ng/mL (0.000-0.056) Height (Feet): 5 Height (Inches): 5.00 Weight (Pounds): 140 General Appearance: WD/WN, no apparent distress, alert Cardiovascular: normal rate Respiratory/Chest: normal breath sounds, no respiratory distress Abdominal Exam: normal bowel sounds, non tender, soft Extremities: normal range of motion, non-tender Gem Newton N.PObdulia Jul 06, 2017 10:34
[2017-07-06] MEDS ORDERED: NS 500ML ONE (10:57)
[2017-07-06] MEDS ORDERED: Tubing IV Secondary IV ONE (10:57)
[2017-07-06] MEDS: Ketorolac 30mg Inj IV PRN (15:09)
--- NOTE | 2017-07-06 15:46 | Diagnostic Imaging Report ---
Indication: VOMITING, nausea, vomiting blood Technique: Patient ingested effervescent granules, oral thick and thin liquid barium, and rapid sequence spot images, static spot, and overhead images were obtained Comparison: None Findings: Manual Training Teacher film demonstrates unremarkable bowel gas pattern. No unusual masses or calcifications. Esophagus demonstrates normal motility. No strictures or ulcerations are demonstrated. On a few of the images, a small polypoid approximately 1 cm diameter filling defect is demonstrated in the distal esophagus. With the patient standing upright, free reflux of air in the esophagus was visualized. The stomach demonstrates normal distensibility and motility. No evidence of erosions, ulcers, or filling defects. The duodenal bulb, sweep, and proximal small bowel are all unremarkable. Impression: Possible 1 cm polypoid filling defect in the distal esophagus. Possibly artifactual, but polyp or small neoplasm not excludable. Consider further evaluation with endoscopy Free reflux of air into the esophagus with patient standing upright is noted No other acute or significant abnormality demonstrated. Findings discussed by phone with nurse practitioner Tien Newton at the time of interpretation
--- NOTE | 2017-07-06 16:06 | Pulmonology Progress Note ---
Assessment/Plan Problems: (1) Upper GI bleeding (2) Intractable nausea and vomiting (3) Non-ST elevation (NSTEMI) myocardial infarction (4) Diabetes (5) Hypertension Assessment/Plan h/h, stable h2 millicent diet as per GI check troponin echo cardiogram awaiting cardio consult for high troponin add phenergen for Nausea, decrease morphine advance diet, dc home in am Subjective ROS Limited/Unobtainable: No Interval Events: on clear liquid Constitutional: Reports: no symptoms HEENT: Repors: no symptoms Allergies: Coded Allergies: No Known Allergies (Unverified , 08/11/14) Objective Last 24 Hour Vital Signs Date Time Temp Pulse Resp B/P (MAP) Pulse Ox O2 Delivery O2 Flow Rate FiO2 07/06/17 12:05 98.7 86 21 133/99 100 Room Air 07/06/17 08:00 97.9 82 18 114/81 97 07/06/17 04:00 97.3 93 18 120/95 98 07/06/17 00:00 97.8 98 21 149/89 100 07/05/17 23:45 171/110 07/05/17 22:52 106 20 171/110 100 Room Air 07/05/17 20:00 97.0 100 20 159/95 97 Room Air Intake and Output 07/06/17 07/07/17 19:00 07:00 Intake Total 480 ml Balance 480 ml Intake Oral 480 ml General Appearance: WD/WN HEENT: normocephalic, atraumatic Respiratory/Chest: chest wall non-tender, lungs clear Cardiovascular: normal peripheral pulses, regular rhythm Abdomen: normal bowel sounds, no organomegaly Genitourinary: normal external genitalia Extremities: no clubbing Skin: no rash Microbiology Date/Time Source Procedure Growth Status 07/03/17 19:05 Blood Blood Culture - Preliminary NO GROWTH AFTER 48 HOURS Resulted 07/03/17 19:00 Blood Blood Culture - Preliminary NO GROWTH AFTER 48 HOURS Resulted Laboratory Tests 07/06/17 05:10: White Blood Count 8.0, Red Blood Count 5.52, Hemoglobin 16.6, Hematocrit 49.2, Mean Corpuscular Volume 89, Mean Corpuscular Hemoglobin 30.1, Mean Corpuscular Hemoglobin Concent 33.8, Red Cell Distribution Width 12.6, Platelet Count 307, Mean Platelet Volume 6.2L, Neutrophils (%) (Auto) 57.3, Lymphocytes (%) (Auto) 28.5, Monocytes (%) (Auto) 9.5, Eosinophils (%) (Auto) 3.0, Basophils (%) (Auto ) 1.6, Sodium Level 135L, Potassium Level 2.8L, Chloride Level 98, Carbon Dioxide Level 23, Anion Gap 14, Blood Urea Nitrogen 12, Creatinine 0.8, Estimat Glomerular Filtration Rate > 60, Glucose Level 144H, Calcium Level 8.8, Troponin I 0.069H 07/06/17 10:00: Stool Occult Blood [Pending] 07/06/17 12:45: Troponin I 0.067H Current Medications Medications (Trade) Dose Ordered Sig/Macy Route PRN Reason Start Time Stop Time Status Last Admin Dose Admin Acetaminophen (Tylenol) 650 mg Q4H PRN ORAL fever 07/06/17 00:00 08/03/17 00:00 Al Hydroxide/Mg Hydroxide (Mylanta II) 30 ml Q6H PRN ORAL dyspepsia 07/06/17 00:00 08/03/17 00:00 Chlorpromazine (Thorazine) 10 mg Q6H PRN ORAL HICCUPS 07/06/17 01:30 08/03/17 07:29 Clonidine HCl (Catapres) 0.1 mg EVERY 6 HOURS PRN ORAL SBP >160 07/05/17 23:15 08/04/17 23:14 07/05/17 23:45 Dextrose (Dextrose 50%) STAT PRN IV Hypoglycemia 07/06/17 00:00 08/03/17 00:00 Diphenhydramine HCl (Benadryl) 25 mg Q6H PRN ORAL Itching/Pruritis 07/06/17 00:00 08/03/17 00:00 Gabapentin (Neurontin) 300 mg BID@0900,2100 ORAL 07/06/17 09:00 08/03/17 08:59 07/06/17 08:40 Hydrochlorothiazide (Hydrodiuril) 25 mg DAILY ORAL 07/06/17 09:00 08/05/17 08:59 07/06/17 08:39 Insulin Aspart (NovoLOG) BEFORE MEALS AND HS SUBQ 07/06/17 06:30 08/03/17 06:29 07/06/17 12:05 Ketorolac Tromethamine (Toradol 30mg) 15 mg Q6H PRN IV pain 7-10 07/05/17 22:15 07/10/17 10:14 07/06/17 15:09 Nitroglycerin (Ntg) 0.4 mg Q5M PRN SL Prn Chest Pain 07/05/17 22:00 08/03/17 12:59 Nortriptyline HCl (Pamelor) 25 mg DAILY ORAL 07/06/17 09:00 08/03/17 08:59 07/06/17 08:39 Ondansetron HCl (Zofran) 4 mg Q6H PRN IVP Nausea & Vomiting 07/06/17 00:00 08/03/17 00:00 07/05/17 23:53 Pantoprazole (Protonix) 40 mg EVERY 12 HOURS IVP 07/06/17 09:00 08/05/17 08:59 07/06/17 08:39 Polyethylene Glycol (Miralax) 17 gm HSPRN PRN ORAL Constipation 07/06/17 00:00 08/03/17 00:00 Promethazine HCl (Phenergan) 25 mg Q8H PRN IV nausea 07/06/17 02:15 08/04/17 10:14 Sucralfate (Carafate) 1 gm TID ORAL 07/06/17 09:00 08/05/17 08:59 07/06/17 12:11 Temazepam (Restoril) 15 mg HSPRN PRN ORAL Insomnia 07/06/17 00:00 07/11/17 00:00 07/05/17 23:53 KAREEN BRAXTON Jul 06, 2017 16:06
[2017-07-06] MEDS ORDERED: Lexiscan 0.4mg/5ml syringe IV ONE (17:00)
--- NOTE | 2017-07-06 20:45 | Cardiology Progress Note ---
Assessment/Plan Assessment/Plan 1. Nausea, vomiting, bloody stools and bloody vomiting. 2. Abnormal cardiac enzymes, nonspecific level. 3. Diabetes. 4. Hypertension. 5. History of Huerta's palsy. 6. History of asthma. trop remain abn non pecific leve will have perfsuion imaging if neg can dc home Subjective Cardiovascular: Denies: chest pain, lightheadedness, palpitations Respiratory: Denies: shortness of breath Gastrointestinal/Abdominal: Denies: abdominal pain Genitourinary: Denies: burning Objective Last 24 Hour Vital Signs Date Time Temp Pulse Resp B/P (MAP) Pulse Ox O2 Delivery O2 Flow Rate FiO2 07/06/17 17:03 97.8 59 19 156/97 100 Room Air 07/06/17 16:00 97.8 59 19 156/97 100 Room Air 07/06/17 12:05 98.7 86 21 133/99 100 Room Air 07/06/17 08:00 97.9 82 18 114/81 97 07/06/17 04:00 97.3 93 18 120/95 98 07/06/17 00:00 97.8 98 21 149/89 100 07/05/17 23:45 171/110 07/05/17 22:52 106 20 171/110 100 Room Air General Appearance: no apparent distress, alert Neck: supple Cardiovascular: normal rate, regular rhythm Respiratory/Chest: lungs clear, normal breath sounds Abdomen: normal bowel sounds, non tender, soft Extremities: no swelling Intake and Output 07/06/17 07/07/17 19:00 07:00 Intake Total 960 ml Balance 960 ml Intake Oral 960 ml # Bowel Movements 2 Laboratory Tests Test 07/06/17 05:10 07/06/17 10:00 07/06/17 12:45 White Blood Count 8.0 K/UL (4.8-10.8) Red Blood Count 5.52 M/UL (4.70-6.10) Hemoglobin 16.6 G/DL (14.2-18.0) Hematocrit 49.2 % (42.0-52.0) Mean Corpuscular Volume 89 FL (80-99) Mean Corpuscular Hemoglobin 30.1 PG (27.0-31.0) Mean Corpuscular Hemoglobin Concent 33.8 G/DL (32.0-36.0) Red Cell Distribution Width 12.6 % (11.6-14.8) Platelet Count 307 K/UL (150-450) Mean Platelet Volume 6.2 FL (6.5-10.1) L Neutrophils (%) (Auto) 57.3 % (45.0-75.0) Lymphocytes (%) (Auto) 28.5 % (20.0-45.0) Monocytes (%) (Auto) 9.5 % (1.0-10.0) Eosinophils (%) (Auto) 3.0 % (0.0-3.0) Basophils (%) (Auto) 1.6 % (0.0-2.0) Sodium Level 135 MMOL/L (136-145) L Potassium Level 2.8 MMOL/L (3.5-5.1) L Chloride Level 98 MMOL/L (98-107) Carbon Dioxide Level 23 MMOL/L (21-32) Anion Gap 14 mmol/L (5-15) Blood Urea Nitrogen 12 mg/dL (7-18) Creatinine 0.8 MG/DL (0.55-1.30) Estimat Glomerular Filtration Rate > 60 mL/min (>60) Glucose Level 144 MG/DL (74-106) H Calcium Level 8.8 MG/DL (8.5-10.1) Troponin I 0.069 ng/mL (0.000-0.056) 0.067 ng/mL (0.000-0.056) Stool Occult Blood Pending MARYJANE ROSARIO Jul 06, 2017 20:45
[2017-07-07] VITALS: BP 112/69
[2017-07-07] MEDS: Ketorolac 30mg Inj IV PRN (02:01)
[2017-07-07 04:00] VITALS: BP 127/66
[2017-07-07] MEDS: NovoLOG Insulin Flexpen SUBQ SCH ×2 (06:25→12:43)
[2017-07-07 06:52] LABS: ANION GAP 8 mmol/L (5-15); CALCIUM 8.8 MG/DL (8.5-10.1); CARBON DIOXIDE 27 MMOL/L (21-32); CHLORIDE 103 MMOL/L (98-107); CREATININE 0.8 MG/DL (0.55-1.30); GLOMERULAR FILTRATION RATE > 60 mL/min (>60); POTASSIUM 3.5 MMOL/L (3.5-5.1); SODIUM 138 MMOL/L (136-145)
[2017-07-07 06:55] LABS: BASOPHILS % (AUTO) 4.4 % (0.0-2.0); EOSINOPHILS % (AUTO) 6.3 % (0.0-3.0); LYMPHOCYTES % (AUTO) 35.4 % (20.0-45.0); MEAN CORPUSCULAR HEMOGLOBIN 30.4 PG (27.0-31.0); MEAN CORPUSCULAR HGB CONC 33.5 G/DL (32.0-36.0); MEAN CORPUSCULAR VOLUME 91 FL (80-99); MEAN PLATELET VOLUME 6.4 FL (6.5-10.1); MONOCYTES % (AUTO) 7.8 % (1.0-10.0); NEUTROPHILS % (AUTO) 46.1 % (45.0-75.0); PLATELET COUNT 290 K/UL (150-450); RED BLOOD COUNT 5.47 M/UL (4.70-6.10); RED CELL DISTRIBUTION WIDTH 13.1 % (11.6-14.8); WHITE BLOOD COUNT 6.4 K/UL (4.8-10.8)
[2017-07-07 08:00] VITALS: BP 125/90
[2017-07-07] MEDS ORDERED: Lexiscan 0.4mg/5ml syringe IV PRN (09:00)
[2017-07-07] MEDS: Pantoprazole Inj IVP SCH (09:56)
[2017-07-07] MEDS: Nortriptyline 25mg cap ORAL SCH (09:58)
[2017-07-07] MEDS: Sucralfate 1gm tab ORAL SCH ×2 (09:58→12:35)
--- NOTE | 2017-07-07 10:59 | GI Progress Note ---
Assessment/Plan Problems: (1) Upper GI bleeding ICD Codes: K92.2 - Gastrointestinal hemorrhage, unspecified SNOMED: 22031107 (2) Cyclic vomiting syndrome ICD Codes: G43.A0 - Cyclical vomiting, not intractable SNOMED: 97521129 (3) Diabetes ICD Codes: E11.9 - Type 2 diabetes mellitus without complications SNOMED: 82125941 (4) Substance abuse ICD Codes: F19.10 - Other psychoactive substance abuse, uncomplicated SNOMED: 93049747 (5) Intractable nausea and vomiting ICD Codes: R11.2 - Nausea with vomiting, unspecified SNOMED: 681810369, 864137185 (6) Food intolerance ICD Codes: K90.4 - Malabsorption due to intolerance, not elsewhere classified SNOMED: 32666984 Status: stable Status Narrative Discussed with Dr. Isaac. Assessment/Plan fu OB stool r/o GI bleed >> positive upper GI series reviewed >> Possible 1 cm polypoid filling defect in the distal esophagus. okay for DC per GI standpoint fu cardiology recs >> unlikely coronary ischemic related. patient will need EGD, can be done as outpatient. stable H&H, prn transfusions zofran prn, Phenergan for persistent vomiting avoid opioids regular diet, tolerating ppi fu labs Subjective Subjective tolerating regular diet ready to go home denies N/V Objective Last 24 Hour Vital Signs Date Time Temp Pulse Resp B/P (MAP) Pulse Ox O2 Delivery O2 Flow Rate FiO2 07/07/17 08:00 97.5 117 20 125/90 97 Room Air 07/07/17 04:00 97.7 74 18 127/66 97 07/07/17 00:00 98.1 77 22 112/69 100 07/06/17 20:00 97.9 88 21 103/76 100 07/06/17 17:03 97.8 59 19 156/97 100 Room Air 07/06/17 16:00 97.8 59 19 156/97 100 Room Air 07/06/17 12:05 98.7 86 21 133/99 100 Room Air Laboratory Tests Test 07/06/17 12:45 07/07/17 05:00 Troponin I 0.067 ng/mL (0.000-0.056) White Blood Count 6.4 K/UL (4.8-10.8) Red Blood Count 5.47 M/UL (4.70-6.10) Hemoglobin 16.6 G/DL (14.2-18.0) Hematocrit 49.6 % (42.0-52.0) Mean Corpuscular Volume 91 FL (80-99) Mean Corpuscular Hemoglobin 30.4 PG (27.0-31.0) Mean Corpuscular Hemoglobin Concent 33.5 G/DL (32.0-36.0) Red Cell Distribution Width 13.1 % (11.6-14.8) Platelet Count 290 K/UL (150-450) Mean Platelet Volume 6.4 FL (6.5-10.1) L Neutrophils (%) (Auto) 46.1 % (45.0-75.0) Lymphocytes (%) (Auto) 35.4 % (20.0-45.0) Monocytes (%) (Auto) 7.8 % (1.0-10.0) Eosinophils (%) (Auto) 6.3 % (0.0-3.0) H Basophils (%) (Auto) 4.4 % (0.0-2.0) H Sodium Level 138 MMOL/L (136-145) Potassium Level 3.5 MMOL/L (3.5-5.1) Chloride Level 103 MMOL/L (98-107) Carbon Dioxide Level 27 MMOL/L (21-32) Anion Gap 8 mmol/L (5-15) Blood Urea Nitrogen 17 mg/dL (7-18) Creatinine 0.8 MG/DL (0.55-1.30) Estimat Glomerular Filtration Rate > 60 mL/min (>60) Glucose Level 119 MG/DL (74-106) H Calcium Level 8.8 MG/DL (8.5-10.1) Height (Feet): 5 Height (Inches): 5.00 Weight (Pounds): 140 General Appearance: WD/WN, no apparent distress, alert Cardiovascular: normal rate Respiratory/Chest: normal breath sounds, no respiratory distress Abdominal Exam: normal bowel sounds, non tender, soft Extremities: normal range of motion, non-tender Gem Newton N.PObdulia Jul 07, 2017 10:59
[2017-07-07 11:53] VITALS: BP 113/86
--- NOTE | 2017-07-07 15:19 | Diagnostic Imaging Report ---
Indications: Chest pain, elevated troponins, hypertension Technique: Single day single isotope protocol utilized. Initially, resting images obtained using IV administration 9.5 millicuries 99M technetium Myoview. Subsequently, patient underwent lexiscan stress testing. See cardiology report for details. During lexiscan infusion, IV administration 31.6 mCi 99 M technetium Myoview. SPECT and planar images obtained. SPECT images gated to 8 phases of the cardiac cycle were also obtained, and reformatted into cine images for evaluation of ejection fraction. Comparison: None Findings: Per cardiology report, patient experienced no symptoms. Per cardiology report, resting EKG demonstrates normal sinus rhythm and left ventricular hypertrophy. No ST changes noted during infusion. Imaging demonstrates no fixed nor reversible post stress perfusion defects. Calculated post stress ejection fraction 68%. No focal wall motion abnormality Impression: Nonischemic clinical response to pharmacologic stress, per cardiology report Nonischemic electrocardiographic response to pharmacologic stress, per cardiology report No imaging findings to suggest ischemia, at level of stress achieved. Calculated post stress ejection fraction 68%
[2017-07-07] MEDS ORDERED: D5 1/2NS 1000ml IV ONE (16:04)
[2017-07-07 16:25] VITALS: BP 123/80
--- NOTE | 2017-07-08 13:15 | Discharge Summary ---
Discharge Summary Hospital Course Date of Admission Jul 03, 2017 at 22:02 Date of Discharge Jul 07, 2017 at 17:08 Admitting Diagnosis GI BLEED CODY Andersen is a 52 year old male who was admitted on Jul 03, 2017 at 22:02 for Gastrointestinal Bleed Hospital Course [id number] Discharge Discharge Disposition Patient was discharged to Home (01) Discharge Diagnoses: Anali Diop NP Jul 08, 2017 13:15
--- NOTE | 2017-07-09 00:15 | Discharge Summary 2 SIG ---
DATE OF ADMISSION: 07/03/2017 DATE OF DISCHARGE: 07/07/2017 CONSULTANTS: 1. Faheem Jimenez M.D. 2. Allan Isaac M.D. BRIEF HOSPITAL COURSE: The patient is a 52-year-old male with history of hypertension and diabetes, who presented to ER with complaints of abdominal pain with associated nausea and vomiting for three days. The patient had been vomiting blood and reported more than five episodes of vomiting per day, described to be dark red. He denied any diarrhea, but stated he had two episodes of black stools. He denied any chronic use of any aspirin or NSAIDs, and stated he was never chronic alcoholic. He had a recent colonoscopy done within the last 2-3 months. He was not aware of results. He denied having upper endoscopy. On evaluation at ED, the patient was vomiting coffee-ground emesis. At ER, he was given Zofran x2. Hemoglobin was stable. He was given IV fluids and was given Protonix and Pepcid. He was noted to be hypokalemic and was given potassium supplements. EKG done was in normal sinus rhythm with no acute changes. Chest x-ray showed no consolidation, no effusion, no pneumothorax, and no acute cardiopulmonary disease. There was no free air under the diaphragm. He was then admitted to [facility] for upper GI bleed. His troponin was elevated. Cardiac enzymes were monitored. He was seen by Dr. Jimenez. EKG showed premature atrial complexes, there was no significant ST-T wave abnormality of any significant degree and repeat EKG was the same without any ST-segment changes. He had an echocardiogram done that showed left ventricular systolic function to be normal. There was no segmental wall motion abnormality seen. Cardiac abnormalities were minor and did not reach the level to be diagnostic for World Health criteria for diagnosis of acute [place]. The patient was seen by GI for evaluation of GI bleed, deferred EGD given stable hemoglobin levels. He was given Zofran and Phenergan for persistent vomiting. Diet was advanced as tolerated. He underwent an upper GI series that showed a possible 1-cm polypoid filling defect in the distal esophagus. There was no free air. No other acute or significant abnormality demonstrated. He underwent myocardial perfusion scan, results were nonischemic. He was eventually cleared for discharge home, however, he will need EGD as an outpatient. He was counseled against the use of marijuana. He was recommended outpatient test for SIBO. He was eventually cleared for discharge and the patient was discharged home. FINAL DIAGNOSES: 1. Upper gastrointestinal bleed. 2. [id number] myocardial infarction. 3. Intractable nausea and vomiting. 4. Diabetes mellitus. 5. Hypertension. 6. Substance abuse. 7. Cyclic vomiting syndrome. 8. History of Huerta Palsy. 9. History of asthma. DISPOSITION: The patient was discharged home. DISCHARGE MEDICATIONS: Refer to medication list. Sebastian Gentile M.D. I have been assigned to dictate discharge summary on this account and I was not involved in the patient's management. Anali Diop N.P. DR: NOLBERTO JOB#: [id number] CC: SOL
== END 2017-07-07 17:08 | disposition home or self-care (01) | DRG 253 ==
LOC: EMR 19:09 → EDBEDREQSVC 21:22 → EDBEDREQ 21:41 → 2W 22:02 → 4E 07-05 23:10
DX: K92.2 Gastrointestinal hemorrhage, unspecified (principal); I21.4 Non-ST elevation (NSTEMI) myocardial infarction; E86.0 Dehydration; E87.6 Hypokalemia; R11.2 Nausea with vomiting, unspecified; E11.9 Type 2 diabetes mellitus without complications; I10 Essential (primary) hypertension; F19.10 Other psychoactive substance abuse, uncomplicated; R10.9 Unspecified abdominal pain
CPT/HCPCS: 36415; 71010; 74247; 78452; 80048; 80053; 80307; 81003; 82150; 82270; 82962; 83605; 83690; 83880; 84484; 85025; 85610; 85730; 86850; 86900; 86901; 86920; 87040; 93005; 93017; 93306; J1815; J2405; J2765; J2785; J8499